=== PATIENT | female | born 1940 | race Caucasian/White ===

== ENCOUNTER 2023-10-05 12:36 | Emergency (ER) | payer OTHER, SELFPAY ==
[2023-10-05 12:59] VITALS: BP 165/103
[2023-10-05 13:21] LABS: % Basophils 0.6 % (0-2); % Eosinophils 1.6 % (0-6); % Immature Granulocytes 0.2 % (0-0.5); % Lymphocytes 16.4 % (20.5-51.1); % Monocytes 9.4 % (1.7-9.3); % Neutrophils 71.8 % (42.2-75.2); Absolute Basophils 0.1 10^3/uL (0-0.2); Absolute Eosinophils 0.1 10^3/uL (0-0.7); Absolute Lymphocytes 1.4 10^3/uL (1.2-3.4); Absolute Monocytes 0.8 10^3/uL (0.1-0.6); Absolute Neutrophils 6.1 10^3/uL (1.4-6.5); Hematocrit 41.5 % (37.0-47.0); Hemoglobin 14.2 g/dL (12.0-16.0); Mean Corp Hgb Conc. 34.2 g/dL (33.0-37.0); Mean Corpuscular Hgb 30.5 pg (27.0-31.0); Mean Corpuscular Volume 89.1 fL (81.0-99.0); Mean Platelet Volume 9.2 fL (7.4-10.4); Nucleated Red Blood Cells % 0 %; Platelet Count 513 10^3/uL (130-400); Red Blood Cell Count 4.66 10^6/uL (4.20-5.40); Red Cell Dist. Width 14.6 % (11.5-14.5); White Blood Cell Count 8.5 10^3/uL (4.8-10.8)
[2023-10-05 13:45] LABS: NT-proBNP 366 pg/ml
[2023-10-05 14:51] LABS: Blood Urea Nitrogen 15 mg/dl (7-17); Calcium 9.6 mg/dl (8.4-10.2); Carbon Dioxide 23 mmol/L (22-30); Chloride 106 mmol/L (98-107); Glucose 91 mg/dl (70-99); Sodium 134 mmol/L (135-145); eGFR > 60.00
[2023-10-05 14:58] VITALS: BMI 22.5
[2023-10-05 15:05] VITALS: BP 166/86
--- NOTE | 2023-10-05 15:38 | ED.GENMED ---
History of Present Illness
General
Chief Complaint: Skin Problem
Time Seen by Provider: 10/05/23 14:40
Travel History
Have you had any contact with someone who has COVID-19?: No
Do you have any symptoms of coronavirus? Fever > 100 degrees, chills, cough, shortness of breath, sore throat, loss of taste or smell, muscle aches, or headache?: No
History of Present Illness
History of Present Illness:
83-year-old female presents to the emergency department for evaluation of right foot swelling and a small wound to the dorsum of the foot. She is concerned she could have a blood clot. 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
currently on Eliquis. Has a previous history of superficial wounds to the right lower extremity requiring wound care and following antibiotic therapy
Past History
Past History
ED Past Medical History: HTN
ED Past Surgical History: None
Social History
Tobacco: Non-smoker
Alcohol: Occasional
Personal:
Review of Systems
Review of Systems
Allergies reviewed?: Yes
All Other Systems: ROS reviewed and negative except as documented in HPI and ROS
Phy Exam
Physical Exam
Physical Exam:
GEN: Well appearing, NAD, WDWN
HEENT: Oral mucosa moist, no scleral icterus
Cardiac: Regular rate
Lung: No respiratory distress, no tachypnea
MSK: No gross deformity or injuries. Right lower extremity is edematous with prominent varicosities to the upper and lower leg. There is moderate swelling and erythema to the dorsum of the right foot associated with a superficial ulcerated wound
Skin: Good color, no pallor or jaundice, no rashes
Neuro: AO x3, moves all extremities freely
Psych: Calm, cooperative
Course
Orders/Labs/Results
Orders:
Orders
10/05/23 13:10
BNP [NT-proBNP] Urgent
Basic Metabolic Panel Urgent
Complete Blood Count/With Diff Urgent
10/05/23 15:37
Venous Doppler Lwr Ext Rt [US Periph Venous LOWER Ext RT] Urgent
Comment:
Reason For Exam: RLE swelling/pain
Abnormal Lab Results
10/05/23
13:10
RDW 14.6 H %
(11.5-14.5)
Plt Count 513 H 10^3/uL
(130-400)
Absolute Monos (auto) 0.8 H 10^3/uL
(0.1-0.6)
Lymphocytes % 16.4 L %
(20.5-51.1)
Monocytes % 9.4 H %
(1.7-9.3)
Sodium 134 L mmol/L
(135-145)
10/05/23 13:10
10/05/23 13:10
Vital Signs
Initial and Last Documented VS:
Initial Vital Signs
Temp Pulse Resp BP Pulse Ox
98.2 F 73 18 165/103 98
10/05/23 12:59 10/05/23 12:59 10/05/23 12:59 10/05/23 12:59 10/05/23 12:59
Last Documented Vital Signs
Temp Pulse Resp BP Pulse Ox
98.2 F 67 16 151/80 97
10/05/23 12:59 10/05/23 18:10 10/05/23 18:10 10/05/23 18:10 10/05/23 18:10
MDM/Problems Addressed
MDM/Problems Addressed:
Superficial wound likely provoking cellulitis, no evidence for new DVT requiring change to anticoagulation. Will start her on oral and topical antibiotics and recommend close primary care follow-up
*Critical Care Note
Total Time (30-74mins, 75-104mins- exclusive of procedures): Not Applicable
ED Attending Note
-
Portions of this chart may have been created with voice recognition software.� Occasional wrong word or��sound alike� substitutions may have occurred due to the inherent limitations of voice recognition software.
Discharge Plan
Departure
Patient Disposition: Home (Routine Discharge)
Date of Disposition: 10/05/23
Time of Disposition: 17:54
Patient with high blood pressure during this ER visit?: No
Discharge Problem:
Cellulitis of foot, right
Instructions: Cellulitis (Skin Infection), Adult ED
Prescriptions:
New
cephalexin 500 mg capsule
500 mg PO TID 7 Days Qty: 21 0RF
mupirocin 2 % ointment
1 applic topical BID 7 Days Qty: 15 0RF
No Action
lisinopril 20 mg Tablet
20 mg PO BID
cyanocobalamin (vitamin B-12) 500 mcg Tablet
500 mcg PO DAILY
cholecalciferol (vitamin D3) 50 mcg (2,000 unit) Tablet
50 mcg PO DAILY
omega 8-leu-nfb-fish oil [Fish Oil] 1,000 mg (120 mg-180 mg) Capsule
1 cap PO DAILY
Eliquis 5 mg Tablet
5 mg PO BID
Referrals:
Adrien Gamble MD [Family Provider] -
Activity Restrictions/Additional Instructions:
Elevate the leg often
Cleanse the wound with soap and water
Interventions
Interventions:
*Risk Screen - Suicide Last Done: 10/05/23 12:59
*General Assessment Last Done: 10/05/23 12:59
*Neglect/Abuse Screening Last Done: 10/05/23 12:59
ED- Fall Risk Assessment Last Done: 10/05/23 14:58
*ED COVID-19 Vaccine History Last Done: 10/05/23 12:59
*Nursing Disposition Last Done: 10/05/23 18:10
ED-Skin Assessment Last Done: 10/05/23 14:58
Discharge Date and Time
Discharge Date/Time: 10/05/23 18:15
Print Language: SLOVENIAN
[2023-10-05 18:10] VITALS: BP 151/80
--- NOTE | 2023-10-05 18:20 | EDRN ---
Reviewed discharge instructions with patient. Verbalized understanding.
== END 2023-10-05 18:15 | disposition home or self-care (01) ==
LOC: EMR 12:36
PROVIDERS: Emergency Medicine; EMERGENCY PHYSICIAN Emergency Medicine; FAMILY PHYSICIAN Family Medicine
DX: L03.115 Cellulitis of right lower limb (principal); I10 Essential (primary) hypertension; Z79.01 Long term (current) use of anticoagulants; Z86.718 Personal history of other venous thrombosis and embolism
CPT/HCPCS: 99283; 80048; 83880; 85025; 93971

== ENCOUNTER 2023-12-18 00:34 | Inpatient (IN) | payer OTHER, SELFPAY ==
[2023-12-17 18:36] VITALS: BP 147/100
--- NOTE | 2023-12-17 21:20 | ED.GENMED ---
History of Present Illness
General
Chief Complaint: Weakness
Source: patient and family (Daughter)
Exam Limitations: none
Time Seen by Provider: 12/17/23 19:38
Nursing documentation reviewed up to this point in time: agreed with
History of Present Illness
History of Present Illness:
83-year-old female with history as above presents for evaluation of generalized weakness and change in her skin on the right leg. Patient was admitted about a year ago for right lower extremity DVT has been on Eliquis; she did follow with wound
care briefly for skin changes on the right leg. Patient reports that over the past week she feels that the lower leg has been somewhat more discolored on the right�she reports the skin has been darker, not erythematous. It is not painful or
swollen. She also reports that she has had increased generalized weakness to the point that last night she could not even stand up off the toilet. Daughter brought her in to be assessed. She denies any headache or neck pain. Denies chest pain or
shortness of breath. No coughing. No abdominal pain. No nausea, vomiting, diarrhea. Denies urinary symptoms. Denies any other complaints.
Past History
Past History
ED Past Medical History: HTN
ED Past Surgical History: None
Social History
Tobacco: Non-smoker
Alcohol: Occasional
Personal:
Review of Systems
Review of Systems
All Other Systems: ROS reviewed and negative except as documented in HPI and ROS
Constitutional: Reports fatigue; Denies fever
Respiratory: Denies cough or trouble breathing
Cardiac: Denies chest pain or palpitations
ABD/GI: Denies abdominal pain, nausea, vomiting or diarrhea
: Denies flank pain
Musculoskeletal: Denies neck pain or back pain
Skin: Reports other (Darkening of the skin right lower leg)
Neurological: Denies dizzy, headache, weakness or numbness
Phy Exam
Physical Exam
Physical Exam:
General: Awake, alert, oriented x3; no acute distress
Head: Normocephalic, atraumatic
Eyes: Conjunctiva normal, EOMI
Throat: Airway intact, handling secretions
Neck: Trachea midline, supple without meningismus
Lungs: Clear to auscultation bilaterally, no wheezing, rales, rhonchi
Heart: Regular rate and rhythm, no murmurs, gallops, or rubs
Abd: Soft, non distended, nontender
Neuro: Cranial nerves grossly intact, speech fluid
Skin: no rash
Extremities: No edema in extremities, equal pulses in all extremities; patient has repeatedly chronic venous stasis changes in her right lower extremity with dry scaly skin; she does have a very small patch of erythema on the dorsum of the midfoot
on the right but it is not warm or tender to the touch; pulses palpable right lower extremity and present by Doppler for confirmation.
Scores
Heart Failure Risk
Heart Failure Risk Score: Not Applicable
Heart Score for Chest Pain Patients
STEMI patient?: Not applicable
Withdrawal Assessment of Alcohol
Withdrawal Assessment Completed?: Not applicable
Course
Orders/Labs/Results
Orders:
Orders
12/17/23 19:40
Electrocardiogram (*1) Urgent
Reason for Study: Fatigue / Weakness
EKG- Treatment ONCE
Urinalysis Reflex To Culture Urgent
12/17/23 20:04
CR Chest Portable - 1 View Urgent
Comment:
Reason For Exam: weakness
Reason Study Needs to be Portable: Unable to Transport
US Periph Venous LOWER Ext RT Urgent
Comment:
Reason For Exam: RLE skin changes, h/o DVT RLE
12/17/23 21:23
COVID-19 Antigen Urgent
Source: Nasal Swab
Complete Blood Count/With Diff Urgent
Comprehensive Metabolic Panel Urgent
Abnormal Lab Results
12/17/23
21:23
RDW 14.6 H %
(11.5-14.5)
Plt Count 633 H 10^3/uL
(130-400)
Lymphocytes % 18.1 L %
(20.5-51.1)
BUN 18 H mg/dl
(7-17)
Glucose 101 H mg/dl
(70-99)
12/17/23 21:23
12/17/23 21:23
Vital Signs
Initial and Last Documented VS:
Initial Vital Signs
Temp Pulse Resp BP Pulse Ox
36.8 C 93 16 147/100 98
12/17/23 18:36 12/17/23 18:36 12/17/23 18:36 12/17/23 18:36 12/17/23 18:36
Last Documented Vital Signs
Temp Pulse Resp BP Pulse Ox
36.8 C 93 16 147/100 98
12/17/23 18:36 12/17/23 18:36 12/17/23 18:36 12/17/23 18:36 12/17/23 18:36
MDM/Problems Addressed
Differential Diagnosis Includes:
Weakness: Wide differential diagnosis includes infection such as UTI or pneumonia, anemia, electrolyte derangement, dehydration, polypharmacy, deconditioning
Skin changes: Cellulitis a consideration, suspect more likely chronic venous stasis changes although must consider DVT given her history; she has no pain or any symptoms to suggest an acute arterial occlusion although certainly some degree of
peripheral vascular disease could contribute to skin changes
MDM/Problems Addressed:
83-year-old female presents for evaluation of generalized weakness and so has noticed some darkening of the skin on the right leg. Including CBC and CMP. Check viral swabs. Check chest x-ray. Will send urinalysis. Check an EKG. Will send for
right lower extremity ultrasound. Monitor closely reassess after the above.
Labs reviewed: CBC and CMP unremarkable COVID-negative. Chest x-ray no acute disease. Awaiting ultrasound.
Ultrasound shows nonocclusive thrombus in the right femoral vein�given that she is having symptoms similar to prior DVT and is reportedly compliant with Eliquis will start on IV heparin admit for specialist consultation and continued treatment.
Case discussed with hospitalist.
Chronic conditions affecting care:
History of DVT
Acute Exacerbation and/or Progression of Chronic Illness:
Acute hypertensive
Acute Exacerbation and/or Progression of Chronic Illness: HTN
*Radiology
Radiology exam reviewed: radiology read reviewed
*Pulse Oximetry
Patient hypoxic: no
*EKG
Interpreted by ED Provider?: Yes
Heart Rate: 79
Rate: normal
Rhythm: sinus
Sumerco: normal axis
Interval: normal interval
QRS Pattern: right bundle branch block
Ischemia: no ischemia
*Critical Care Note
Total Time (30-74mins, 75-104mins- exclusive of procedures): Not Applicable
Data Reviewed
Review of Other/Old Records Reveals: Labs and Records
Source: patient, records and family
Patient Management
Discussion with other providers: Hospitalist (Discussed with hospitalist)
Escalation/DeEscalation of care consider admission/obs:
Admission indicated
ED Attending Note
-
Portions of this chart may have been created with voice recognition software.� Occasional wrong word or��sound alike� substitutions may have occurred due to the inherent limitations of voice recognition software.
Discharge Plan
Departure
Patient Disposition: Admit
Date of Disposition: 12/17/23
Time of Disposition: 23:58
Admit to doctor: Sunitha
Presentation/result/management discussed w/ accepting MD/DO: Hospitalist
Discharge Problem:
DVT (deep venous thrombosis)
Prescriptions:
No Action
lisinopril 20 mg Tablet
20 mg PO BID
cyanocobalamin (vitamin B-12) 500 mcg Tablet
500 mcg PO DAILY
cholecalciferol (vitamin D3) 50 mcg (2,000 unit) Tablet
50 mcg PO DAILY
omega 9-uea-enj-fish oil [Fish Oil] 1,000 mg (120 mg-180 mg) Capsule
1 cap PO DAILY
Eliquis 5 mg Tablet
5 mg PO BID
cephalexin 500 mg capsule
500 mg PO TID 7 Days Qty: 21 0RF
mupirocin 2 % ointment
1 applic topical BID 7 Days Qty: 15 0RF
Referrals:
Adrien Gamble MD [Family Provider] -
Discharge Date and Time
Print Language: INDONESIAN
[2023-12-17 21:24] VITALS: BP 168/94
[2023-12-17 21:30] VITALS: BP 158/91
[2023-12-17 21:41] LABS: % Basophils 0.4 % (0-2); % Eosinophils 0.9 % (0-6); % Immature Granulocytes 0.4 % (0-0.5); % Lymphocytes 18.1 % (20.5-51.1); % Monocytes 6.5 % (1.7-9.3); % Neutrophils 73.7 % (42.2-75.2); Absolute Eosinophils 0.1 10^3/uL (0-0.7); Absolute Lymphocytes 1.5 10^3/uL (1.2-3.4); Absolute Monocytes 0.6 10^3/uL (0.1-0.6); Absolute Neutrophils 6.2 10^3/uL (1.4-6.5); Hematocrit 40.3 % (37.0-47.0); Hemoglobin 13.9 g/dL (12.0-16.0); Mean Corp Hgb Conc. 34.5 g/dL (33.0-37.0); Mean Corpuscular Hgb 30.2 pg (27.0-31.0); Mean Corpuscular Volume 87.4 fL (81.0-99.0); Nucleated Red Blood Cells % 0 %; Platelet Count 633 10^3/uL (130-400); Red Blood Cell Count 4.61 10^6/uL (4.20-5.40); Red Cell Dist. Width 14.6 % (11.5-14.5); White Blood Cell Count 8.4 10^3/uL (4.8-10.8)
[2023-12-17 21:51] LABS: ALT (SGPT) 10 U/L (0-35); AST (SGOT) 26 U/L (14-36); Albumin 3.8 g/dl (3.5-5.0); Alkaline Phosphatase 104 U/L (38-126); Blood Urea Nitrogen 18 mg/dl (7-17); COVID-19 Antigen Negative (Negative); Calcium 9.9 mg/dl (8.4-10.2); Carbon Dioxide 23 mmol/L (22-30); Chloride 106 mmol/L (98-107); Glucose 101 mg/dl (70-99); Potassium 4.4 mmol/L (3.5-5.1); Sodium 140 mmol/L (135-145); eGFR > 60.00
[2023-12-17 22:00] VITALS: BP 156/96
[2023-12-17 22:30] VITALS: BP 141/87
[2023-12-18] VITALS (12 sets, daily range): BP systolic 116–160; BP diastolic 68–97; PULSE 84–85; O2SAT 97; BMI 22.0
--- NOTE | 2023-12-18 00:13 | HPS.HSE ---
Addendum entered and electronically signed by Jacobo Helton MD 12/18/23 00:54:
NEG�HCT� for acute process.
Pending UA
Original Note:
Family Physician
-
Family Physician: Adrien Gamble
Chief Complaint
-
abn skin changes in Rt leg
History of Present Illness
83F on chronic Eliquis for HX RLE DVT dx in 2021 seen at ER for evaluation of skin change on the right leg
Rt leg skin changes
- noted somewhat more discolored on the right described as darker but not erythematous.
- denied pain and swelling
- associated increased generalized weakness last night thus unable to stand up off the toilet. No localized weakness
- denied fever and chills
- denies CP
- denied SoB and palpitation
- Brief Past HX of wound care f/u for skin changes on the right leg
On chronic Eliquis for HX RLE DVT dx in 2021 and compliance with Eliquis
Medical History
Past Medical History
Past Medical History: Reports HTN
Additional Past Medical History:
HX Rt LUDMILA DVT
Past Surgical History: Reports None
Social History
Tobacco: Non-smoker
Alcohol: Occasional
Personal:
Living: With Family
Family History
Family History: Not pertinent
Allergies / Home Medications
Allergies reflects when Allergies were last updated in [facility].
Home Medications with original date entered in [facility]
Allergy/Medication List:
Allergies
Allergy/AdvReac Type Severity Reaction Status Date / Time
No Known Allergies Allergy Verified 12/17/23 18:38
Home Medications
apixaban 5 mg tablet (Eliquis) 5 mg PO BID 10/05/23
cephalexin 500 mg capsule 500 mg PO TID 7 days #21 caps 10/05/23
cholecalciferol (vitamin D3) 50 mcg (2,000 unit) tablet 50 mcg PO DAILY 10/05/23
cyanocobalamin (vitamin B-12) 500 mcg tablet 500 mcg PO DAILY 10/05/23
lisinopril 20 mg tablet 20 mg PO BID 10/05/23
mupirocin 2 % topical ointment 1 applic topical BID 7 days #15 grams 10/05/23
omega 1-fyn-ycn-fish oil 1,000 mg (120 mg-180 mg) capsule (Fish Oil) 1 cap PO DAILY 10/05/23
Review of Systems
-
Constitutional: Reports No Symptoms
EENT: Reports No Symptoms
Respiratory: Reports No Symptoms
Cardiac: Reports No Symptoms
Abdomen/GI: Reports No Symptoms
: Reports No Symptoms
Musculoskeletal: Reports No Symptoms
Skin: Reports See HPI
Neurological: Reports No Symptoms
Endocrine: Reports No Symptoms
Hematologic/Lymphatic: Reports No Symptoms
Psych: Reports No Symptoms
Physical Exam
Vital Signs
Vital Signs
Temp Pulse Resp BP Pulse Ox
98.2 F 93 16 147/100 98
12/17/23 18:36 12/17/23 18:36 12/17/23 18:36 12/17/23 18:36 12/17/23 18:36
Physical Exam
General: Well Developed, Well Nourished and No Apparent Distress
HEENT: NormoCephalic, Moist mucous membranes and Atraumatic
Respiratory: Clear
Cardiac: S1/S2 and Regular Rhythm; No Murmur or Rub
GI: Soft, Non Tender, Non Distended and Normal Bowel Sounds; No Organomegaly
Rectal: Deferred by Provider
Musculoskeletal: No Clubbing, No Cyanosis, No Edema and Other (unkempt thick, hypertrophic toenails)
Skin: Other (No edema in extremities, equal pulses in all extremities; patient has repeatedly chronic venous stasis changes in her right lower extremity with dry scaly skin- very small patch of erythema on the dorsum of the midfoot on the right but
it is not warm or tender to the touch); No Rash
Neuro: AO x 3 and Nonfocal/grossly intact
Laboratory Results
-
12/17/23 21:23
12/17/23 21:23
Laboratory Results
Total Bilirubin 1.0 mg/dl (0.2-1.3) 12/17/23 21:23
AST 26 U/L (14-36) 12/17/23 21:23
ALT 10 U/L (0-35) 12/17/23 21:23
Alkaline Phosphatase 104 U/L (38-126) 12/17/23 21:23
Data Reviewed
-
Ultrasound: Report Reviewed by me
Lab Data: Labs Reviewed by me
Old Records: Reviewed
Impression/Plan
-
Reviewed VS: Unremarkable
Data
Plt 633 - baseline 500s since 2021
Unremarkable CMP
NEG Covid
EKG report:
NORMAL SINUS RHYTHM
POSSIBLE LEFT ATRIAL ENLARGEMENT
RIGHT BUNDLE BRANCH BLOCK
ABNORMAL ECG
WHEN COMPARED WITH ECG OF 16-FEB-2008 14:32,
RIGHT BUNDLE BRANCH BLOCK IS NOW PRESENT
12/17/23 R Ludmila US
Mild nonocclusive thrombus in the femoral vein
12/17/23 CXR: No acute cardiopulmonary process.
NO PRIOR hospitalist admission:
ASSESSMENT & PLAN
Pending Rx reconciliation
Break thru R Ludmila DVT depside reported compliance with Eliquis
- Agree with Heparin gtt
- Held Eliquis
- Hematology consult
Thrombocytosis: Essential primary thrombocytosis ?
- noted since 2021
- no prior heme evaluation
- await Heme evaluation in AM
Acute ambulatory dysfunction
- associated weakness
- HCT to complete w/u for weakness and gait dysfunction
- PT/OT
Unkempt thick, hypertrophic long curvy toe nails
- Security Delivery Specialist consult
Essential HTN
- on Lisinopril
DVT Px: Heparin gtt
Code: Full
IP TLM
[2023-12-18] MEDS: HEPARIN 5200 UNITS IV (00:47)
[2023-12-18] MEDS: HEPARIN 25000 UNITS/250 ML IV ×2 (00:48→20:59)
[2023-12-18 01:48] LABS: APTT 21.4 Sec (23.4-35.0); INR 1.16; PT 14.6 Sec (11.4-14.6)
[2023-12-18] MEDS: NSS 1000 IV ×2 (03:06→18:33)
[2023-12-18 08:03] LABS: INR 1.35; PT 16.5 Sec (11.4-14.6)
[2023-12-18 08:05] LABS: Hematocrit 34.6 % (37.0-47.0); Hemoglobin 11.7 g/dL (12.0-16.0); Mean Corp Hgb Conc. 33.8 g/dL (33.0-37.0); Mean Corpuscular Volume 88.7 fL (81.0-99.0); Mean Platelet Volume 9.3 fL (7.4-10.4); Platelet Count 613 10^3/uL (130-400); Red Cell Dist. Width 14.6 % (11.5-14.5); White Blood Cell Count 7.7 10^3/uL (4.8-10.8)
[2023-12-18] MEDS: ZESTRIL 20 MG PO ×2 (08:07→20:37)
[2023-12-18 08:21] LABS: APTT 178.3 Sec (23.4-35.0)
[2023-12-18 08:27] LABS: Blood Urea Nitrogen 15 mg/dl (7-17); Calcium 8.8 mg/dl (8.4-10.2); Carbon Dioxide 24 mmol/L (22-30); Chloride 107 mmol/L (98-107); Estimated Creatinine Clearance 67 ml/min; Glucose 77 mg/dl (70-99); Potassium 4.2 mmol/L (3.5-5.1); Sodium 137 mmol/L (135-145); eGFR > 60.00
--- NOTE | 2023-12-18 10:29 | W.PN.HOSP.TC ---
Today's Communication/Plan
-
see A/P
Assessment / Plan
Assessment / Plan
HPI: 83 yo F with PMH RLE DVT diagnosed 2021 on chronic Eliquis and compliant p/w skin changes on the right leg.
She denied pain or swelling.
She also c/o generalized weakness and was unable to get up from the toilet.
A/P:
# acute RLE DVT depside reported compliance with Eliquis
RLE US: Nonocclusive right lower extremity DVT slightly progressed from prior
Consider Eliquis failure
Cont Heparin gtt
Hold [employer] Eliquis
Hematology consult
# Thrombocytosis, ? Essential thrombocytosis
no prior heme evaluation
Hematology consult as above
# Acute ambulatory dysfunction with associated weakness
CT head showed no acute intracranial abnormality.
PT/OT
# Unkempt thick, hypertrophic long curvy toe nails
[employer] was consulted by admission physician
# Essential HTN
Cont [facility] Lisinopril
DVT Px: Heparin gtt
Code: Full
Anticipated Discharge: > 48 hours
Subjective/Interval History
-
Date of Service: December 18, 2023
Objective Data
-
Labs:
Laboratory Results
12/18/23 12/18/23 12/18/23
00:41 06:38 15:30
WBC 7.7
Hgb 11.7 L
Hct 34.6 L
Plt Count 613 H
PT 14.6 16.5 H
INR 1.16 1.35
APTT 21.4 L 178.3 H* Pending
Sodium 137
Potassium 4.2
Chloride 107
Carbon Dioxide 24
BUN 15
Creatinine 0.6
Glucose 77
Calcium 8.8
Vital Signs:
Vital Signs
Temp Pulse Resp BP Pulse Ox
37.0 C 83 12 141/91 95
12/18/23 07:02 12/18/23 08:07 12/18/23 07:02 12/18/23 08:07 12/18/23 07:02
I&O
12/17/23 12/18/23 12/19/23
06:59 06:59 06:59
Intake Total 0 / 0
Output Total 180 / 180
Balance -180 / -180
Review of Systems
-
All other systems: Reviewed and negative
Physical Exam
-
General: Well Developed, No Apparent Distress, Comfortable and Conversant; Negative Respiratory Distress
HEENT: Normocephalic, Atraumatic, Nose Appears Normal and Ears Appear Normal; Negative Oxygen
Respiratory: Clear to Auscultation and Non Labored Respirations; Negative Accessory Resp Muscle Use
Cardiac: Regular Rhythm and S1/S2
GI: Soft, Nontender, Nondistended and Normal Bowel Sounds
Skin: Warm and Dry
Neuro: Awake and Alert
Psych: Calm and Intact Judgement/Insight
Data Reviewed
-
Ultrasound: Report Reviewed by me
Labs: Labs Reviewed by me
--- NOTE | 2023-12-18 11:44 | CON.ONC ---
Addendum entered and electronically signed by Ji Sparks MD 12/19/23 13:47:
I neglected to mention her thrombocytosis which is occurred recently. 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 Molecular studies would be necessary, but will have to be performed as an outpatient.
Original Note:
Impression
Impression
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
Plan
Plan
Given the extensive nature of her varicosities, and a recurrent clot, I have some concern for venous obstruction or other pelvic pathology. Will proceed with CT scan.
Assuming no reversible causes seen on CT scan we must consider her an Eliquis failure. However, the right lower extremity is so pathologic in terms of its venous anatomy, I am not certain that switching her to warfarin will actually be a better
choice. However, it appears that we have a little choice other than to do that. I will also check a phospholipid antibody panel on her.
Patient History
History of Present Illness
Consult from Dr. Chapman regarding deep vein thrombosis
This 83-year-old woman was admitted with a deep vein thrombosis. Her history dates back about 2 years, when she was diagnosed with a deep vein thrombosis of the right femoral vein. She was treated with Eliquis 5 mg twice daily. Sometime
thereafter, she developed extensive varicosities, as well as some nonhealing areas of the skin in that extremity requiring frequent visits to the wound care center. The skin problems eventually improved. A repeat venous Doppler in September of this year
showed improvement in the clot, with a suggestion of some chronic clot in the mid femoral vein. However, she noted discoloration of the right lower extremity, and a Doppler done yesterday showed progression of the previously described chronic clot,
with clot now involving most of the femoral vein. She is being treated with intravenous heparin. She has had no trauma to the leg.
Past-Medical/Surgical History
She has otherwise been in good health.
Social history: She does not smoke.
Family history is noncontributory.
Patient Medication
�Medication �Instructions �Recorded �Confirmed �Last Taken �Type
apixaban 5 mg tablet (Eliquis) 5 mg PO BID 10/05/23 10/05/23 10/05/23 History
cephalexin 500 mg capsule 500 mg PO TID 7 days #21 caps 10/05/23 Unknown Rx
cholecalciferol (vitamin D3) 50 50 mcg PO DAILY 10/05/23 10/05/23 10/05/23 History
mcg (2,000 unit) tablet
cyanocobalamin (vitamin B-12) 500 500 mcg PO DAILY 10/05/23 10/05/23 10/05/23 History
mcg tablet
lisinopril 20 mg tablet 20 mg PO BID 10/05/23 10/05/23 10/05/23 History
mupirocin 2 % topical ointment 1 applic topical BID 7 days #15 10/05/23 Unknown Rx
grams
omega 5-fft-tbl-fish oil 1,000 mg 1 cap PO DAILY 10/05/23 10/05/23 10/05/23 History
(120 mg-180 mg) capsule (Fish Oil)
Active Medications
Generic Name Dose Route Start Last Admin
Trade Name Freq PRN Reason Stop Dose Admin
Acetaminophen 650 mg 12/18/23 02:16
Acetaminophen 325 Mg Tablet PO 01/15/24 02:15
Q4HPRN PRN
mild pain/WELLER/temp> 100.4F
Bisacodyl 10 mg 12/18/23 02:16
Bisacodyl 10 Mg Rectal Suppository RECTAL 01/15/24 02:15
[id number] PRN
constipation
Heparin Sodium 5,200 units 12/18/23 00:09
Heparin 80 Units/Kg Rebolus-Do Not Discard IV 01/15/24 00:08
PRN PRN
PTT < OR = 64 seconds
Heparin Sodium 2,600 units 12/18/23 00:10
Heparin 40 Units/Kg Rebolus-Do Not Discard IV 01/15/24 00:09
PRN PRN
PTT = 64.1 to 72.9 seconds
Heparin Sodium 25,000 units in 250 mls @ 0 mls/hr 12/17/23 23:45 12/18/23 00:48
Heparin 18189 Units/250 Ml IV 250 mls
PER PROTOCOL LILLIAN Administration
Protocol
Per Protocol
Sodium Chloride 1,000 mls @ 60 mls/hr 12/18/23 02:16 12/18/23 03:06
Nss IV 1,000 mls
.[id number] LILLIAN Administration
Lisinopril 20 mg 12/18/23 08:00 12/18/23 08:07
Lisinopril 20 Mg Tablet PO 01/15/24 07:59 20 mg
BID LILLIAN Administration
Polyethylene Glycol 17 grams 12/18/23 02:16
Polyethylene Glycol Powder 17 Grams Packet PO 01/15/24 02:15
DAILYPRN PRN
constipation
Senna/Docusate Sodium 1 tablet 12/18/23 02:16
Docusate W/Senna (Usha-Colace) Tablet PO 01/15/24 02:15
BIDPRN PRN
constipation
Sodium Chloride 0 flush 12/18/23 01:00
Sodium Chloride 0.9% (Flush) Syringe IV 01/15/24 00:59
PER PROTOCOL LILLIAN
Review of Systems
-
All Other Systems: Reviewed and Negative
Physical Exam
-
Physical examination shows the patient to be in no acute distress.
HEENT exam is unremarkable.
There are no palpable nodes.
Chest is clear.
The heart is regular with no murmur or gallop.
The abdomen is soft and nontender with no organomegaly or masses.
Extremities reveal extensive varicosities throughout most of the right lower extremity.
Neurologic is grossly intact.
Labs
Lab Results
WBC 7.7 10^3/uL (4.8-10.8) 12/18/23 06:38
RBC 3.90 10^6/uL (4.20-5.40) L 12/18/23 06:38
Hgb 11.7 g/dL (12.0-16.0) L 12/18/23 06:38
Hct 34.6 % (37.0-47.0) L 12/18/23 06:38
MCV 88.7 fL (81.0-99.0) 12/18/23 06:38
MCH 30.0 pg (27.0-31.0) 12/18/23 06:38
MCHC 33.8 g/dL (33.0-37.0) 12/18/23 06:38
RDW 14.6 % (11.5-14.5) H 12/18/23 06:38
Plt Count 613 10^3/uL (130-400) H 12/18/23 06:38
MPV 9.3 fL (7.4-10.4) 12/18/23 06:38
Abs Immat Gran (auto) 0.0 10^3/uL (0-0.05) 12/17/23 21:23
Absolute Neuts (auto) 6.2 10^3/uL (1.4-6.5) 12/17/23 21:23
Absolute Lymphs (auto) 1.5 10^3/uL (1.2-3.4) 12/17/23 21:23
Absolute Monos (auto) 0.6 10^3/uL (0.1-0.6) 12/17/23 21:23
Absolute Eos (auto) 0.1 10^3/uL (0-0.7) 12/17/23 21:23
Absolute Basos (auto) 0.0 10^3/uL (0-0.2) 12/17/23 21:23
Immature Gran % 0.4 % (0-0.5) 12/17/23 21:
Neutrophils % 73.7 % (42.2-75.2) 12/17/23:
Lymphocytes % 18.1 % (20.5-51.1) L 12/17/23 21:
Monocytes % 6.5 % (1.7-9.3) 12/17/23 21:
Eosinophils % 0.9 % (0-6) 12/17/23:
Basophils % 0.4 % (0-2) 12/17/23:
Creatinine 0.6 mg/dL (0.6-1.0) 12/18/23 06:38
Vital Signs
Vital Signs
Temp Pulse Resp BP Pulse Ox
98.6 F 83 12 141/91 95
12/18/23 07:02 12/18/23 08:07 12/18/23 07:02 12/18/23 08:07 12/18/23 07:02
--- NOTE | 2023-12-18 11:54 | CM ---
CM met with Virginia this am to assess potential needs for discharge.
[place]ia lives alone at [facility]; home is one level with no entry steps. She has a cane and a RW, drives. Has been independent in ambulation and adl's.
Currently Virginia is weaker and may benefit from SNF admission. She is considering this option and would like to review the list of options for SNF.
CM to continue to follow to arrange services/placement at discharge.
PCP: Adrien Richard
Pharmacy: [facility] in [place]
--- NOTE | 2023-12-18 13:39 | PTCARENOTE ---
Patient had two bright red bloody bowel movements today. GI MD aware. On clear liquid diet today. Denies N/V or abdominal pain.
[2023-12-18 16:52] LABS: APTT 78.3 Sec (23.4-35.0)
--- NOTE | 2023-12-18 17:02 | PTCARENOTE ---
PTT in therapeutic range. No changes to heparin gtt rate. Remains at 1000 units/hour. Next PTT scheduled for 2300.
--- NOTE | 2023-12-18 22:26 | W.PN.POD ---
Today's Communication
- Today's Communication
podiatry consult by admitting physician
unkempt toenails
Assessment / Plan
- -
Mycotic Hypertrophic toenails both feet
severe thickness and discoloration
Debrided and grinded all nails to reduce thickness,
deformity and pain
patient tolerated well
no complications
suggest patient followup with personal paint crew supervisor in 3 months
Subjective/Objective
- Subjective
patient admitted due to weakness and changes in color
of lower right leg
past history of DVT and on eliquis
patient has not trimmed toenails for months
big toenails possibly for a year
patient unable to trim own nails
too hard and thick
patient relates mild pain only but uncomfortable walking and wearing shoes
- Objective
Temp Pulse Resp BP Pulse Ox
98.7 F 80 16 146/85 95
12/18/23 19:38 12/18/23 20:37 12/18/23 19:38 12/18/23 20:37 12/18/23 19:38
12/18/23 06:38
12/18/23 06:38
Vital Signs and Lab results were reviewed.
Hallux nails severely thickened > 1/4 inches
and elongated with delma horn deformity
discolored with yellow surface and subungal debris
lesser nails 2-5 moderate thickness both feet
discolored with yellow subungal debris
no lesions
pulses no PT, DP +1/4
[2023-12-18] MEDS: HEPARIN 2600 UNITS IV (23:35)
[2023-12-19 03:04] VITALS: BP 154/78
[2023-12-19 06:46] LABS: Hematocrit 35.4 % (37.0-47.0); Hemoglobin 11.9 g/dL (12.0-16.0); Mean Corp Hgb Conc. 33.6 g/dL (33.0-37.0); Mean Corpuscular Hgb 30.7 pg (27.0-31.0); Mean Corpuscular Volume 91.2 fL (81.0-99.0); Mean Platelet Volume 8.9 fL (7.4-10.4); Platelet Count 578 10^3/uL (130-400); Red Blood Cell Count 3.88 10^6/uL (4.20-5.40); Red Cell Dist. Width 14.5 % (11.5-14.5); White Blood Cell Count 7.4 10^3/uL (4.8-10.8)
[2023-12-19 07:04] LABS: APTT 118.3 Sec (23.4-35.0)
[2023-12-19 07:16] LABS: Blood Urea Nitrogen 11 mg/dl (7-17); Calcium 9.2 mg/dl (8.4-10.2); Carbon Dioxide 26 mmol/L (22-30); Chloride 106 mmol/L (98-107); Estimated Creatinine Clearance 67 ml/min; Glucose 93 mg/dl (70-99); Magnesium 1.7 mg/dl (1.6-2.3); Potassium 4.3 mmol/L (3.5-5.1); Sodium 138 mmol/L (135-145); eGFR > 60.00
[2023-12-19 07:59] VITALS: BP 146/84
[2023-12-19] MEDS: ZESTRIL 20 MG PO ×2 (08:17→19:49)
--- NOTE | 2023-12-19 09:43 | W.PN.HOSP.TC ---
Today's Communication/Plan
-
see A/P
Assessment / Plan
Assessment / Plan
HPI: 83 yo F with PMH RLE DVT diagnosed 2021 on chronic Eliquis and compliant p/w skin changes on the right leg.
She denied pain or swelling.
She also c/o generalized weakness and was unable to get up from the toilet.
CT AP:
1. The inferior vena cava and bilateral iliac veins are patent. No evidence for venous thrombosis or extrinsic compression.
2. Cholelithiasis.
3. Colonic diverticulosis.
4. 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
5. Stable small bilateral adnexal cystic structures.
6. Chronic appearing moderate to severe compression fracture of L1 with retropulsion.
A/P:
# acute recurrent RLE DVT depside reported compliance with Eliquis
RLE US: Nonocclusive right lower extremity DVT slightly progressed from prior
Consider Eliquis failure , Holding CHANNELING MACHINE RUNNER Eliquis
Cont Heparin gtt
CT AP checked per heme to eval pathology of venous anatomy, CT noted patent IVC and BL iliac veins
Check Phospholipid antibody panel per heme
Hematology on board
# Thrombocytosis, ? 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
Hematology consult as above
Will defer ASA to heme
# Acute ambulatory dysfunction with associated weakness
CT head showed no acute intracranial abnormality.
PT/OT recc SNF
# Unkempt thick, hypertrophic long curvy toe nails/ Mycotic Hypertrophic toenails both feet
Claims Service Adjustor debrided and grinded all nails to reduce thickness, deformity and pain
suggest patient followup with personal rigging loft repairer in 3 months
# Essential HTN
Cont CHANNELING MACHINE RUNNER Lisinopril
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
Recc outpt MRI with PCP and consider follow up with GI. Informed pt about this
DVT Px: Heparin gtt
Code: Full
Dispo: PT recc SNF
Anticipated Discharge: 24 - 48 hours
Subjective/Interval History
-
Date of Service: December 19, 2023
Objective Data
-
Labs:
Laboratory Results
12/18/23 12/19/23 12/19/23
23:07 06:31 14:35
WBC 7.4
Hgb 11.9 L
Hct 35.4 L
Plt Count 578 H
APTT 65.0 H 118.3 H Pending
Sodium 138
Potassium 4.3
Chloride 106
Carbon Dioxide 26
BUN 11
Creatinine 0.6
Glucose 93
Calcium 9.2
Vital Signs:
Vital Signs
Temp Pulse Resp BP Pulse Ox
37.0 C 76 18 146/84 96
12/19/23 07:59 12/19/23 07:59 12/19/23 07:59 12/19/23 07:59 12/19/23 07:59
I&O
12/18/23 12/19/23 12/20/23
06:59 06:59 06:59
Intake Total 0 / 0 840 / 840
Output Total 180 / 180
Balance -180 / -180 840 / 840
Review of Systems
-
All other systems: Reviewed and negative
Physical Exam
-
General: Well Developed, No Apparent Distress, Comfortable and Conversant; Negative Respiratory Distress
HEENT: Normocephalic, Atraumatic, Nose Appears Normal and Ears Appear Normal; Negative Oxygen
Respiratory: Clear to Auscultation and Non Labored Respirations; Negative Accessory Resp Muscle Use
Cardiac: Regular Rhythm and S1/S2
GI: Soft, Nontender, Nondistended and Normal Bowel Sounds
Skin: Warm and Dry
Neuro: Awake and Alert
Psych: Calm and Intact Judgement/Insight
Data Reviewed
-
CT Scan: Report Reviewed by me
Ultrasound: Report Reviewed by me
Labs: Labs Reviewed by me
[2023-12-19 11:26] VITALS: BP 138/72
--- NOTE | 2023-12-19 12:48 | CM ---
Addendum entered by Victoria Moore 12/19/23 15:42:
JOSIE followed up with [place] to determine her preferences for SNF. She feels that [facility] would be the best since it is close to home, and friends/neighbors could visit her there.
Original Note:
CM met with [place] and provided her with the Medicare Compare SNF list in the area. Virginia talked about her home and the community in which she lives. There are a lot of activities if she wants to participate, and her neighbors are supportive of
everyone in the community.
Virginia is concerned that she is not feeling as perky as she usually does, and may opt to go to SNF.
CM will return later today to discuss preferences for SNF facilities; referrals will be sent via [facility].
--- NOTE | 2023-12-19 14:00 | W.PN.ONC ---
Today's Communication / Plan
-
See updated plan.
Impression
Impression
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
Plan
Plan
CT scan does not reveal any possible structural etiology for the venous pathology. As mentioned, it is difficult to argue with the venous Dopplers which seem to show that she has failed Eliquis. My sense is that she will not do well on warfarin,
and that leaving her on Eliquis might be a viable option. Nevertheless, I have little choice but to recommend transitioning her to warfarin. I would be reluctant to add aspirin to that in light of the possible essential thrombocytosis, as her
bleeding risk would go up quite a bit at her age.
We will see her in the office in a month or 2 for molecular studies regarding essential thrombocytosis.
Subjective/Objective
Subjective/Objective
She is feeling about the same. She reports no new symptoms. Examination is unchanged.
Vital Signs:
Vital Signs
Temp Pulse Resp BP Pulse Ox
98.8 F 73 18 138/72 96
12/19/23 11:26 12/19/23 11:26 12/19/23 11:26 12/19/23 11:26 12/19/23 11:26
Lab Results:
Laboratory Data
WBC 7.4 10^3/uL (4.8-10.8) 12/19/23 06:31
Hgb 11.9 g/dL (12.0-16.0) L 12/19/23 06:31
Plt Count 578 10^3/uL (130-400) H 12/19/23 06:31
PT 16.5 Sec (11.4-14.6) H 12/18/23 06:38
INR 1.35 12/18/23 06:38
APTT 118.3 Sec (23.4-35.0) H 12/19/23 06:31
eGFR > 60.00 12/19/23 06:31
Orders
Orders
Orders From Last 24 Hours
12/19/23 06:31
Lupus Anticoagulant Panel Refl [S] IN AM
Phospholipid Antibody Panel IN AM
[2023-12-19 14:35] LABS: APTT 41.9 Sec (23.4-35.0)
[2023-12-19] MEDS: HEPARIN 5200 UNITS IV (14:48)
[2023-12-19 15:59] VITALS: BP 165/98
--- NOTE | 2023-12-19 16:11 | CM ---
CM contacted Sunita Erlin who had spoken with RN, requesting I contact her to discuss discharge plans. Sunita is a close family friend who looks after Virginia; [place] was agreeable to me speaking with Sunita.
I had provided a list of SNF with star ratings from Medicare; she thinks that [facility] would be best since it is close to home and friends/neighbors may visit.
I advised Sunita that Virginia had chosen [facility] and Sunita was agreeable to this.
CM will send referral to [facility] via [facility]. Discharge is anticipated in 24-48 hours.
Plan: SNF placement with first choice of [facility].
PCP: Adrien Richard
Pharmacy: [facility] in [place]
[2023-12-19 19:49] VITALS: BP 140/96
[2023-12-19 21:58] LABS: APTT 155.3 Sec (23.4-35.0)
[2023-12-19 23:33] VITALS: BP 152/87
[2023-12-20] MEDS: HEPARIN 25000 UNITS/250 ML IV ×2 (00:36→23:31)
[2023-12-20 04:25] VITALS: BP 160/92
--- NOTE | 2023-12-20 06:42 | W.PN.ONC2 ---
Today's Communication / Plan
-
IV Heparin > warfarin as Eliquis failure.
MRI ATTN: Pancreas based on pancreatic lesion. Relatively low pre-test probability for malignancy but this could be the reason for progressive DVT despite Eliquis (if hypercoagulability of malignancy).
Impression
Impression
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
Plan
Plan
CT scan does not reveal any possible structural etiology for the venous pathology. As mentioned, it is difficult to argue with the venous Dopplers which seem to show that she has failed Eliquis. My sense is that she will not do well on warfarin,
and that leaving her on Eliquis might be a viable option. Nevertheless, I have little choice but to recommend transitioning her to warfarin now. I would be reluctant to add aspirin to that in light of the possible essential thrombocytosis, as her
bleeding risk would go up quite a bit at her age.
We will see her in the office in a month or 2 for molecular studies regarding essential thrombocytosis.
Regarding the pancreas, a small 1.4 cm cystic focus in the head of the pancreas which appears to communicate with the main pancreatic duct was seen. Because of this unexpected Progression of DVT, I suspect an MRI to better evaluate this lesion
would be reasonable if she is agreeable as malignancy can lead to hypercoagulability. Still somewhat low pre-test probability. Essential Thrombocytosis if confirmed can also lead to hypercoagulability. Discussed with patient. She is agreeable to
MRI.
Subjective/Objective
Chief Complaint
ACS Heme Onc
Subjective
No complaints. Right leg about the same on IV heparin.
Vital Signs:
Vital Signs
Temp Pulse Resp BP Pulse Ox
98.6 F 68 14 160/92 95
12/20/23 04:25 12/20/23 04:25 12/20/23 04:25 12/20/23 04:25 12/20/23 04:25
Lab Results:
Laboratory Data
WBC 7.4 10^3/uL (4.8-10.8) 12/19/23 06:31
Hgb 11.9 g/dL (12.0-16.0) L 12/19/23 06:31
Plt Count 578 10^3/uL (130-400) H 12/19/23 06:31
PT 16.5 Sec (11.4-14.6) H 12/18/23 06:38
INR 1.35 12/18/23 06:38
APTT 155.3 Sec (23.4-35.0) H* 12/19/23 21:25
eGFR > 60.00 12/19/23 06:31
Exams: CT Abd/pelvis W Iv Cont
PROCEDURES: CT Abd/pelvis W Iv Cont
CLINICAL INDICATION: Worsening right lower extremity edema, concern for venous obstruction.
TECHNIQUE: A CT examination of the abdomen and pelvis was performed following the administration of nonionic intravenous contrast. Oral contrast was not administered. Coronal and sagittal reformatted images were obtained. Automatic exposure control
radiation dose reduction technology was utilized.
COMPARISON: CT abdomen/pelvis 11/24/2014.
FINDINGS:
CHEST: Minor linear scarring in the left lower lobe.
ABDOMEN:
Small calcified gallstone and sludge in the gallbladder lumen. The liver, gallbladder, bile ducts, spleen, and bilateral adrenal glands are unremarkable. 1.4 cm cystic focus in the head of the pancreas (series 202, image 19), which appears to
communicate with the main pancreatic duct. 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 Small right renal cysts. No hydronephrosis.
The abdominal aorta is normal in caliber. Moderate aortobiiliac calcified atherosclerosis. The inferior vena cava and bilateral iliac veins are patent.
No abdominal or retroperitoneal lymphadenopathy.
Colonic diverticulosis, without evidence for acute diverticulitis. No bowel wall thickening, obstruction, or inflammation. No extraluminal free air, fluid collection, or ascites.
PELVIS: Small bilateral adnexal cystic structures appear unchanged from prior. The uterus and urinary bladder are unremarkable. No pelvic free fluid or lymphadenopathy.
SKELETON: Chronic appearing moderate to severe compression fracture of L1. Retropulsion of the superior endplate of L1 contributes to at least a moderate degree of spinal canal stenosis. Chronic advanced degenerative changes of the spine. Mild
lumbar dextroscoliosis. Grade 1 degenerative anterolistheses of L3 on L4 and L4 on L5. Chronic degenerative findings also involve the bilateral sacroiliac joints, hips, and symphysis pubis.
IMPRESSION:
1. The inferior vena cava and bilateral iliac veins are patent. No evidence for venous thrombosis or extrinsic compression.
2. Cholelithiasis.
3. Colonic diverticulosis.
4. 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
5. Stable small bilateral adnexal cystic structures.
6. Chronic appearing moderate to severe compression fracture of L1 with retropulsion.
Electronically signed by Reynaldo Navarro, 12/18/2023 4:16 PM
Physical Exam
HEENT: No Jaundice
Cardiology: S1 and S2
Pulmonary: Clear
GI: Soft
Extremities: Other (slight RLE edema )
Neuro: Non Focal
[2023-12-20 06:44] LABS: Hematocrit 35.7 % (37.0-47.0); Hemoglobin 12.2 g/dL (12.0-16.0); Mean Corp Hgb Conc. 34.2 g/dL (33.0-37.0); Mean Corpuscular Hgb 29.9 pg (27.0-31.0); Mean Corpuscular Volume 87.5 fL (81.0-99.0); Platelet Count 568 10^3/uL (130-400); Red Blood Cell Count 4.08 10^6/uL (4.20-5.40); Red Cell Dist. Width 14.5 % (11.5-14.5); White Blood Cell Count 7.6 10^3/uL (4.8-10.8)
[2023-12-20 06:53] LABS: APTT 103.9 Sec (23.4-35.0)
[2023-12-20 07:03] LABS: Blood Urea Nitrogen 9 mg/dl (7-17); Calcium 9.3 mg/dl (8.4-10.2); Carbon Dioxide 27 mmol/L (22-30); Chloride 106 mmol/L (98-107); Estimated Creatinine Clearance 67 ml/min; Glucose 95 mg/dl (70-99); Magnesium 1.7 mg/dl (1.6-2.3); Potassium 4.2 mmol/L (3.5-5.1); Sodium 138 mmol/L (135-145); eGFR > 60.00
[2023-12-20 08:14] VITALS: BP 160/90
--- NOTE | 2023-12-20 09:49 | W.PN.HOSP.TC ---
Today's Communication/Plan
-
see A/P
Assessment / Plan
Assessment / Plan
HPI: 83 yo F with PMH RLE DVT diagnosed 2021 on chronic Eliquis and compliant p/w skin changes on the right leg.
She denied pain or swelling.
She also c/o generalized weakness and was unable to get up from the toilet.
CT AP:
1. The inferior vena cava and bilateral iliac veins are patent. No evidence for venous thrombosis or extrinsic compression.
2. Cholelithiasis.
3. Colonic diverticulosis.
4. 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
5. Stable small bilateral adnexal cystic structures.
6. Chronic appearing moderate to severe compression fracture of L1 with retropulsion.
A/P:
# acute recurrent RLE DVT depside reported compliance with Eliquis
RLE US: Nonocclusive right lower extremity DVT slightly progressed from prior
Consider Eliquis failure , Holding TOURIST ADVISER Eliquis
Started heparin drip, cont
Added Coumadin with current heparin bridge, daily INR, plan is to DC on Coumadin
CT AP was checked per heme to eval pathology of venous anatomy, CT noted patent IVC and BL iliac veins
Checking Phospholipid antibody panel per heme
Hematology on board
# Thrombocytosis, ? 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
Hematology on board
No ASA per heme with high risk of bleeding
# Acute ambulatory dysfunction with associated weakness
CT head showed no acute intracranial abnormality.
PT/OT recc SNF
# Unkempt thick, hypertrophic long curvy toe nails/ Mycotic Hypertrophic toenails both feet
Engine Hostler debrided and grinded all nails to reduce thickness, deformity and pain
suggest patient followup with personal civil service clerk in 3 months
# Essential HTN
Cont TOURIST ADVISER Lisinopril
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
Check MRI
Onc on board
DVT Px: Heparin bridge to Coumadin
Code: Full
Dispo: PT recc SNF
DW RN
Anticipated Discharge: 24 - 48 hours
Subjective/Interval History
-
Date of Service: December 20, 2023
Objective Data
-
Labs:
Laboratory Results
12/19/23 12/20/23
21:25 06:27
WBC 7.6
Hgb 12.2
Hct 35.7 L
Plt Count 568 H
APTT 155.3 H* 103.9 H
Sodium 138
Potassium 4.2
Chloride 106
Carbon Dioxide 27
BUN 9
Creatinine 0.6
Glucose 95
Calcium 9.3
Vital Signs:
Vital Signs
Temp Pulse Resp BP Pulse Ox
36.8 C 80 18 160/90 95
12/20/23 08:14 12/20/23 08:14 12/20/23 08:14 12/20/23 08:14 12/20/23 08:14
I&O
12/19/23 12/20/23 12/21/23
06:59 06:59 06:59
Intake Total 840 / 840 1149 / 1149
Balance 840 / 840 1149 / 1149
Review of Systems
-
All other systems: Reviewed and negative
Physical Exam
-
General: Well Developed, No Apparent Distress, Comfortable and Conversant; Negative Respiratory Distress
HEENT: Normocephalic, Atraumatic, Nose Appears Normal and Ears Appear Normal; Negative Oxygen
Respiratory: Clear to Auscultation and Non Labored Respirations; Negative Accessory Resp Muscle Use
Cardiac: Regular Rhythm and S1/S2
GI: Soft, Nontender, Nondistended and Normal Bowel Sounds
Skin: Warm and Dry
Neuro: Awake and Alert
Psych: Calm and Intact Judgement/Insight
Data Reviewed
-
CT Scan: Report Reviewed by me
Ultrasound: Report Reviewed by me
Labs: Labs Reviewed by me
[2023-12-20] MEDS: ZESTRIL 20 MG PO ×2 (09:58→20:14)
[2023-12-20 11:40] VITALS: BP 144/75
[2023-12-20 13:13] VITALS: BP 157/93; PULSE 81; O2SAT 96
--- NOTE | 2023-12-20 13:43 | CM ---
Chart reviewed; pt scheduled for MRI to evaluate a small cystic focus in the head of the pancreas. CM called Sunita Kern to make her aware that transfer to SNF is pending results of MRI and treatment plan if needed based on results. Since Sunita
lives a distance away I will keep her updated to avoid her driving here unecessarily.
CM will continue to follow for discharge planning with anticipated plan of d/c to [facility] when medically stable. SNF authorization will be required.
[2023-12-20 15:51] VITALS: BP 139/75
[2023-12-20] MEDS: COUMADIN 7.5 MG PO (20:09)
[2023-12-20 20:26] LABS: APTT 82.9 Sec (23.4-35.0)
[2023-12-20 23:00] VITALS: BP 154/84
[2023-12-20 23:10] LABS: Beta-2-Glycoprotein I Ab. IgA <10 SAU (<=20); Beta-2-Glycoprotein I Ab. IgG <10 SGU (<=20); Beta-2-Glycoprotein I Ab. IgM <10 SMU (<=20)
[2023-12-21 00:31] LABS: Anti-Xa Qualitative Interp Present (Not Present); Anticoagulant Med Neutralizati Hepzyme (Not Performed); Hexagonal Phospholipid Confirm Not Performed s (<=7.9); Neutralized PTT-LA Ratio 1.12 (<=1.20); Neutralized dRVTT Screen Ratio Not Performed (<=1.20); PTT-LA Ratio 3.11 (<=1.20); Prothrombin Time 15.5 s (12.0-15.5); Thrombin Time >150.0 s (<=19.5); dRVTT 1.1 Mix Ratio Not Performed (<=1.20); dRVTT Confirmation Ratio Not Performed (<=1.20); dRVTT Screen Ratio 0.97 (<=1.20)
[2023-12-21 02:16] LABS: Phosphatidylserine Ab, IgA 0 APS (0-19); Phosphatidylserine Ab, IgG 0 GPS (0-15); Phosphatidylserine Ab, IgM 0 MPS (0-21)
[2023-12-21 07:02] VITALS: BP 160/88
[2023-12-21 08:17] LABS: Cardiolipin IgA Antibody <10 APL (<=11); Cardiolipin IgM Antibody <10 MPL (<=12); Cardiolipin Igg Antibody <10 GPL (<=14)
[2023-12-21 08:28] LABS: Hemoglobin 12.1 g/dL (12.0-16.0); Mean Corp Hgb Conc. 33.6 g/dL (33.0-37.0); Mean Corpuscular Hgb 30.4 pg (27.0-31.0); Mean Corpuscular Volume 90.5 fL (81.0-99.0); Mean Platelet Volume 9.3 fL (7.4-10.4); Platelet Count 523 10^3/uL (130-400); Red Blood Cell Count 3.98 10^6/uL (4.20-5.40); Red Cell Dist. Width 14.2 % (11.5-14.5); White Blood Cell Count 7.7 10^3/uL (4.8-10.8)
[2023-12-21 08:37] LABS: INR 1.17; PT 14.9 Sec (11.4-14.6)
[2023-12-21] MEDS: ZESTRIL 20 MG PO ×2 (08:38→20:13)
[2023-12-21 08:39] LABS: APTT 78.4 Sec (23.4-35.0)
--- NOTE | 2023-12-21 09:18 | W.PN.ONC2 ---
Today's Communication / Plan
-
f/u MRI abdomen
Impression
Impression
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
Plan
Plan
CT scan does not reveal any possible structural etiology for the venous pathology. As mentioned, it is difficult to argue with the venous Dopplers which seem to show that she has failed Eliquis. My sense is that she will not do well on warfarin,
and that leaving her on Eliquis might be a viable option. Nevertheless, I have little choice but to recommend transitioning her to warfarin now. I would be reluctant to add aspirin to that in light of the possible essential thrombocytosis, as her
bleeding risk would go up quite a bit at her age.
We will see her in the office in 1-2 months for molecular studies regarding essential thrombocytosis.
Regarding the pancreas, a small 1.4 cm cystic focus in the head of the pancreas which appears to communicate with the main pancreatic duct was seen. Because of this unexpected Progression of DVT, I suspect an MRI to better evaluate this lesion
would be reasonable if she is agreeable as malignancy can lead to hypercoagulability. Still somewhat low pre-test probability. Essential Thrombocytosis if confirmed can also lead to hypercoagulability.
Subjective/Objective
Chief Complaint
no new complaints
Subjective
denies bleeding
Vital Signs:
Vital Signs
Temp Pulse Resp BP Pulse Ox
98.3 F 70 14 160/88 94
12/21/23 07:02 12/21/23 07:02 12/21/23 07:02 12/21/23 07:02 12/21/23 07:02
Lab Results:
Laboratory Data
WBC 7.7 10^3/uL (4.8-10.8) 12/21/23 07:50
Hgb 12.1 g/dL (12.0-16.0) 12/21/23 07:50
Plt Count 523 10^3/uL (130-400) H 12/21/23 07:50
PT 14.9 Sec (11.4-14.6) H 12/21/23 07:50
INR 1.17 12/21/23 07:50
APTT 78.4 Sec (23.4-35.0) H 12/21/23 07:50
eGFR > 60.00 12/20/23 06:27
Physical Exam
Physical examination shows the patient to be in no acute distress.
HEENT anicteric, no oral lesions
Chest is clear.
CV RRR
The abdomen is soft and nontender
Extremities reveal extensive varicosities throughout most of the right lower extremity.
Neurologic is grossly intact. Speech clear
Review of Systems
Review of Systems
Review of systems is notable for subjective otherwise negative
[2023-12-21 09:47] LABS: Blood Urea Nitrogen 11 mg/dl (7-17); Carbon Dioxide 23 mmol/L (22-30); Chloride 106 mmol/L (98-107); Estimated Creatinine Clearance 67 ml/min; Glucose 96 mg/dl (70-99); Magnesium 1.7 mg/dl (1.6-2.3); Sodium 136 mmol/L (135-145); eGFR > 60.00
--- NOTE | 2023-12-21 09:48 | W.PN.HOSP.TC ---
Today's Communication/Plan
-
see A/P
Assessment / Plan
Assessment / Plan
HPI: 83 yo F with PMH RLE DVT diagnosed 2021 on chronic Eliquis and compliant p/w skin changes on the right leg.
She denied pain or swelling.
She also c/o generalized weakness and was unable to get up from the toilet.
CT AP:
1. The inferior vena cava and bilateral iliac veins are patent. No evidence for venous thrombosis or extrinsic compression.
2. Cholelithiasis.
3. Colonic diverticulosis.
4. 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
5. Stable small bilateral adnexal cystic structures.
6. Chronic appearing moderate to severe compression fracture of L1 with retropulsion.
A/P:
# acute recurrent RLE DVT depside reported compliance with Eliquis
RLE US: Nonocclusive right lower extremity DVT slightly progressed from prior
Consider Eliquis failure , Holding GRAND JURY DEPUTY SHERIFF Eliquis
Started heparin drip, cont
Added Coumadin with current heparin bridge, daily INR, plan is to DC on Coumadin
CT AP was checked per heme to eval pathology of venous anatomy, CT noted patent IVC and BL iliac veins
Phospholipid antibody panel negative
Hematology on board
# Thrombocytosis, ? 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
Hematology on board
No ASA per heme with high risk of bleeding with Coumadin
# Acute ambulatory dysfunction with associated weakness
CT head showed no acute intracranial abnormality.
PT/OT recc SNF
# Unkempt thick, hypertrophic long curvy toe nails/ Mycotic Hypertrophic toenails both feet
Lab Systems Analyst debrided and grinded all nails to reduce thickness, deformity and pain
suggest patient followup with personal aerospace stress engineer in 3 months
# Essential HTN
Cont GRAND JURY DEPUTY SHERIFF Lisinopril
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
Check MRI
Onc on board
DVT Px: Heparin bridge to Coumadin
Code: Full
Dispo: PT recc SNF
DW RN
Anticipated Discharge: 24 - 48 hours
Subjective/Interval History
-
Date of Service: December 21, 2023
Objective Data
-
Labs:
Laboratory Results
12/21/23
07:50
WBC 7.7
Hgb 12.1
Hct 36.0 L
Plt Count 523 H
PT 14.9 H
INR 1.17
APTT 78.4 H
Sodium 136
Potassium 4.0
Chloride 106
Carbon Dioxide 23
BUN 11
Creatinine 0.6
Glucose 96
Calcium 9.0
Vital Signs:
Vital Signs
Temp Pulse Resp BP Pulse Ox
36.8 C 70 14 160/88 94
12/21/23 07:02 12/21/23 07:02 12/21/23 07:02 12/21/23 07:02 12/21/23 07:02
I&O
12/20/23 12/21/23 12/22/23
06:59 06:59 06:59
Intake Total 1149 / 1149 1332 / 1332
Balance 1149 / 1149 1332 / 1332
Review of Systems
-
All other systems: Reviewed and negative
Physical Exam
-
General: Well Developed, No Apparent Distress, Comfortable and Conversant; Negative Respiratory Distress
HEENT: Normocephalic, Atraumatic, Nose Appears Normal and Ears Appear Normal; Negative Oxygen
Respiratory: Clear to Auscultation and Non Labored Respirations; Negative Accessory Resp Muscle Use
Cardiac: Regular Rhythm and S1/S2
GI: Soft, Nontender, Nondistended and Normal Bowel Sounds
Skin: Warm and Dry
Neuro: Awake and Alert
Psych: Calm and Intact Judgement/Insight
Data Reviewed
-
CT Scan: Report Reviewed by me
Ultrasound: Report Reviewed by me
Labs: Labs Reviewed by me
[2023-12-21 11:24] VITALS: BP 144/84
[2023-12-21 15:02] VITALS: BP 130/81
[2023-12-21] MEDS: COUMADIN 7.5 MG PO (16:50)
[2023-12-21 16:55] VITALS: BP 157/94; PULSE 83; O2SAT 96
[2023-12-21] MEDS: HEPARIN 25000 UNITS/250 ML IV (22:33)
[2023-12-21 23:36] VITALS: BP 129/73
[2023-12-22] VITALS (7 sets, daily range): BP systolic 126–157; BP diastolic 68–94; PULSE 85; O2SAT 96
[2023-12-22 07:22] LABS: Hematocrit 35.4 % (37.0-47.0); Hemoglobin 12.1 g/dL (12.0-16.0); Mean Corp Hgb Conc. 34.2 g/dL (33.0-37.0); Mean Corpuscular Hgb 30.2 pg (27.0-31.0); Mean Corpuscular Volume 88.3 fL (81.0-99.0); Mean Platelet Volume 9.2 fL (7.4-10.4); Platelet Count 503 10^3/uL (130-400); Red Blood Cell Count 4.01 10^6/uL (4.20-5.40); Red Cell Dist. Width 14.3 % (11.5-14.5); White Blood Cell Count 7.5 10^3/uL (4.8-10.8)
[2023-12-22 07:31] LABS: INR 1.53; PT 18.5 Sec (11.4-14.6)
[2023-12-22 07:34] LABS: APTT 149.9 Sec (23.4-35.0)
[2023-12-22 07:53] LABS: Blood Urea Nitrogen 11 mg/dl (7-17); Calcium 8.9 mg/dl (8.4-10.2); Carbon Dioxide 26 mmol/L (22-30); Chloride 105 mmol/L (98-107); Estimated Creatinine Clearance 67 ml/min; Glucose 91 mg/dl (70-99); Potassium 4.1 mmol/L (3.5-5.1); Sodium 136 mmol/L (135-145); eGFR > 60.00
[2023-12-22] MEDS: ZESTRIL 20 MG PO ×2 (08:52→21:17)
--- NOTE | 2023-12-22 09:24 | W.PN.ONC2 ---
Today's Communication / Plan
-
warfarin bridge underway, could consider therapeutic enoxaparin for bridge
warfarin management per PCP/SNF upon discharge
MRI/MRCP to be considered
Impression
Impression
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
Thrombocytosis, possible essential
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
Plan
Plan
Heparin to warfarin bridge underway
OP follow up with hematology 1-2 months for molecular studies regarding essential thrombocytosis
MRI/MRCP to be considered
Subjective/Objective
Chief Complaint
denies bleeding
no new complaints
Subjective
Exams: MR Abdomen W/o & W Contrast
EXAMINATION: MRI of the abdomen without and with contrast, MRI of the abdomen without contrast/MRCP
INDICATION: 83-year-old with pancreatic cystic mass. Recent CT scan.
COMPARISON: CT of the abdomen and pelvis from December 18, [address] of the abdomen and pelvis from November 24, 2014.
FINDINGS: MRI of the abdomen is performed, consisting of coronal fast spin-echo T2, respiratory triggered axial fast spin-echo T2 without and with fat saturation, axial T1-weighted gradient-echo in phase and out of phase, axial diffusion-weighted,
and dynamic contrast-enhanced axial fat saturated 3-D T1 weighted gradient echo sequence. Additionally, MRCP images are obtained, consisting of thin section heavily T2-weighted images, and multiple radial thick section coronal oblique heavily
T2-weighted images.
The visualized lower chest, mild atelectasis in the posterior lower lungs, left greater than right. There is no evidence for significant pericardial effusion. No significant hiatal hernia is identified.
There are multiple small gallstones within the gallbladder. There is no MR evidence to suggest gallbladder wall thickening or pericholecystic edema.
There is no evidence for biliary ductal dilation. The common bile duct measures up to 3 mm, within normal range of less than 9 mm in this 83-year-old patient.
No significant fatty infiltration of the liver.
There is some motion artifact on postcontrast images, slightly limiting resolution. Given this limitation, there is no evidence of a focal hepatic lesion. The main portal vein and its branches appear patent as well as the SMV and the splenic vein.
Spleen appears within normal limits.
Both adrenal glands appear normal.
Within the proximal pancreatic tail, there is a well-defined cystic mass anterior to the main pancreatic duct, and this measures 8 mm in maximum dimension. In the pancreatic head, there is a lobulated mass which has predominantly cystic signal
intensity with no evidence of enhancement, and corresponds to the low-density mass seen on CT of the abdomen and pelvis. This mass measures 1.6 cm transverse by 1.5 cm AP by 1.6 cm craniocaudal.
Both of these cystic masses are most likely benign pancreatic cystic masses such as pseudocysts or intraductal papillary mucinous neoplasms. Based on recommendations from the [employer] in an 83-year-old patient, follow-up MRI of
the abdomen/MRCP would be recommended every 2 years x2, 4 total follow-up time frame of 4 years if these remain stable. Therefore, a follow-up MRI of the abdomen/MRCP is recommended in 2 years.
The main pancreatic duct appears within normal limits.
There is tortuosity of the abdominal aorta with no aortic aneurysm. No significantly enlarged abdominal lymph nodes are identified.
There are bilateral renal cysts including small central parapelvic cysts. No evidence for enhancing renal mass. Renal parenchymal thickness appears preserved bilaterally.
Mild to moderate dextroconvex scoliosis, centered at L2-3. There is moderate compression deformity of L1 vertebral body, unchanged from CT of the abdomen and pelvis of December 18, 2023 most likely old. There is retropulsion of the posterior and
superior margin of the L1 vertebral body, compressing the anterior thecal sac and extending close to the anterior margin of the spinal cord, probably without spinal cord compression.
IMPRESSION: There are 2 pancreatic cystic lesions as described, without enhancement. These most likely represent benign pancreatic cystic masses such as pseudocysts or intraductal papillary mucinous neoplasms. Based on recommendations from the
[employer], imaging follow-up with MRI/MRCP to be considered, with initial timeframe of 2 years in this 83-year-old patient. Management of incidental pancreatic cysts: A white paper of the ACR incidental findings committee. November
2016. Volume 14, issues 7, pages 911-199.
Cholelithiasis. No evidence for biliary ductal dilation. No evidence for bile duct calculus. The main pancreatic duct has normal caliber.
Bilateral renal cysts.
Moderate compression deformity of L1 vertebral body, unchanged from CT examination of December 18, 2023. This is most likely an old compression deformity with retropulsion of the posterior and superior margin of the L1 vertebral body.
Vital Signs:
Vital Signs
Temp Pulse Resp BP Pulse Ox
98 F 78 18 157/83 93
12/22/23 07:10 12/22/23 08:52 12/22/23 07:10 12/22/23 08:52 12/22/23 07:10
Lab Results:
Laboratory Data
WBC 7.5 10^3/uL (4.8-10.8) 12/22/23 07:01
Hgb 12.1 g/dL (12.0-16.0) 12/22/23 07:01
Plt Count 503 10^3/uL (130-400) H 12/22/23 07:01
PT 18.5 Sec (11.4-14.6) H 12/22/23 07:01
INR 1.53 12/22/23 07:01
APTT 149.9 Sec (23.4-35.0) H 12/22/23 07:01
eGFR > 60.00 12/22/23 07:01
Physical Exam
HEENT: Moist Mucous Membranes; No Jaundice
Cardiology: S1 and S2
Pulmonary: Clear
GI: Soft
Extremities: No Edema
Neuro: Non Focal
Review of Systems
Review of Systems
ROS notable for subjective, otherwise negative
--- NOTE | 2023-12-22 12:29 | W.PN.HOSP.TC ---
Today's Communication/Plan
-
DC ready
Lovenox bridge to Coumadin
MRCP outpatient
F/u PCP, Onc, GI outpatient
Assessment / Plan
Assessment / Plan
HPI: 83 yo F with PMH RLE DVT diagnosed 2021 on chronic Eliquis and compliant p/w skin changes on the right leg.
She denied pain or swelling.
She also c/o generalized weakness and was unable to get up from the toilet.
A/P:
# acute recurrent RLE DVT depside reported compliance with Eliquis
RLE US: Nonocclusive right lower extremity DVT slightly progressed from prior
Consider Eliquis failure , Holding RESUME SPECIALIST Eliquis
Switch to Lovenox for Coumadin Bridging
CT AP was checked per heme to eval pathology of venous anatomy, CT noted patent IVC and BL iliac veins
Phospholipid antibody panel negative
Hematology on board
# Thrombocytosis, ? 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
Hematology on board
No ASA per heme with high risk of bleeding with Coumadin
# Acute ambulatory dysfunction with associated weakness
CT head showed no acute intracranial abnormality.
PT/OT recc SNF
# Unkempt thick, hypertrophic long curvy toe nails/ Mycotic Hypertrophic toenails both feet
Beauty Culture Teacher debrided and grinded all nails to reduce thickness, deformity and pain
suggest patient followup with personal furniture reproducer in 3 months
# Essential HTN
Cont RESUME SPECIALIST Lisinopril
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
MRI: most likely represent benign pancreatic cystic masses such as pseudocysts or intraductal papillary mucinous neoplasms
imaging follow-up with MRI/MRCP to be considered, with initial timeframe of 2 years in this 83-year-old patient.
F/u GI/Onc outpatient
#Moderate compression deformity of L1 vertebral body
-unchanged from CT examination of December 18, 2023
-F/u outpatient
DVT Px: Heparin bridge to Coumadin
Code: Full
Dispo: PT recc SNF
Anticipated Discharge: Within 24 hours
Subjective/Interval History
-
Date of Service: December 22, 2023
no acute events
Objective Data
-
Labs:
Laboratory Results
12/22/23 12/22/23
07:01 16:00
WBC 7.5
Hgb 12.1
Hct 35.4 L
Plt Count 503 H
PT 18.5 H
INR 1.53
APTT 149.9 H Pending
Sodium 136
Potassium 4.1
Chloride 105
Carbon Dioxide 26
BUN 11
Creatinine 0.6
Glucose 91
Calcium 8.9
Vital Signs:
Vital Signs
Temp Pulse Resp BP Pulse Ox
98.6 F 79 14 126/68 96
12/22/23 11:10 12/22/23 11:10 12/22/23 11:10 12/22/23 11:10 12/22/23 11:10
I&O
12/21/23 12/22/23 12/23/23
06:59 06:59 06:59
Intake Total 1332 / 1332 732 / 732
Balance 1332 / 1332 732 / 732
Review of Systems
-
History Source: Patient
All other systems: Not reviewed unless documented
Physical Exam
-
General: Well Developed, No Apparent Distress, Comfortable and Conversant; Negative Respiratory Distress
HEENT: Normocephalic, Atraumatic, Nose Appears Normal and Ears Appear Normal; Negative Oxygen
Respiratory: Clear to Auscultation and Non Labored Respirations; Negative Accessory Resp Muscle Use
Cardiac: Regular Rhythm and S1/S2
GI: Soft, Nontender, Nondistended and Normal Bowel Sounds
Skin: Warm and Dry
Neuro: Awake and Alert
Psych: Calm and Intact Judgement/Insight
Data Reviewed
-
CT Scan: Report Reviewed by me
Ultrasound: Report Reviewed by me
Labs: Labs Reviewed by me
[2023-12-22 13:44] LABS: Urine Albumin Negative (Neg - Trace); Urine Bilirubin Negative (Negative); Urine Character Slightly Cloudy (Clear); Urine Color Yellow; Urine Glucose Negative (Negative); Urine Ketone Negative (Negative); Urine Leukocyte 2+ (Negative); Urine Nitrite Negative (Negative); Urine Occult Blood Trace (Negative); Urine Urobilinogen 2+ (Neg - 1+)
[2023-12-22 14:02] LABS: Urine Bacteria Few (Negative); Urine White Cell 80-90 /HPF (0-5)
[2023-12-22] MEDS: LOVENOX 60 MG SC (14:25)
[2023-12-22] MEDS: TYLENOL 650 MG PO (14:26)
--- NOTE | 2023-12-22 15:49 | CM ---
JOSIE called Marilia at [facility] to check on bed availability for SNF. No bed available today, but there is likelihood that a bed will be available tomorrow.
Call to Sunita Kern, close family friend and POA, , to advise of probable bed availability at [facility] tomorrow. She would like w/c van transport to be arranged for transfer.
PLAN: JOSIE pursuing authorization for SNF in am at [facility].
[2023-12-22 16:11] LABS: APTT 51.4 Sec (23.4-35.0)
--- NOTE | 2023-12-22 16:41 | CM ---
I spoke with Marilia ([facility]) who advised [facility] may have a bed available tomorrow for transfer.
[facility] SNF level 1 12/22-12/27/2023 approved. Authorization number [id number] provided by Noel.
Please contact family friend Sunita Kern, , for w/c van payment to be made once arrangements made.
[facility] Report: [phone]
[facility]
[2023-12-22] MEDS: COUMADIN 7.5 MG PO (17:39)
[2023-12-23] MEDS: LOVENOX 60 MG SC ×2 (01:47→12:26)
[2023-12-23 07:16] LABS: Hematocrit 36.8 % (37.0-47.0); Hemoglobin 12.5 g/dL (12.0-16.0); Mean Corpuscular Hgb 29.9 pg (27.0-31.0); Mean Platelet Volume 9.5 fL (7.4-10.4); Platelet Count 533 10^3/uL (130-400); Red Blood Cell Count 4.18 10^6/uL (4.20-5.40); Red Cell Dist. Width 14.4 % (11.5-14.5); White Blood Cell Count 7.2 10^3/uL (4.8-10.8)
[2023-12-23 07:20] VITALS: BP 148/89
[2023-12-23 07:22] LABS: PT 23.4 Sec (11.4-14.6)
[2023-12-23 07:44] LABS: Blood Urea Nitrogen 13 mg/dl (7-17); Calcium 9.1 mg/dl (8.4-10.2); Carbon Dioxide 27 mmol/L (22-30); Chloride 106 mmol/L (98-107); Estimated Creatinine Clearance 67 ml/min; Glucose 90 mg/dl (70-99); Potassium 4.3 mmol/L (3.5-5.1); Sodium 136 mmol/L (135-145); eGFR > 60.00
--- NOTE | 2023-12-23 08:38 | CM ---
Addendum entered by Jacquelyn Bowie 12/23/23 11:42:
No available beds today. Physician updated and patient aware. CM will continue to follow for discharge planning needs.
Original Note:
VM left for admissions to confirm bed availability at [facility]. CM will update physician as soon as response received.
[2023-12-23] MEDS: ZESTRIL 20 MG PO ×2 (08:56→21:12)
[2023-12-23 09:38] LABS: Urine Albumin Negative (Neg - Trace); Urine Bilirubin Negative (Negative); Urine Character Clear (Clear); Urine Color Yellow; Urine Glucose Negative (Negative); Urine Ketone Negative (Negative); Urine Leukocyte 1+ (Negative); Urine Nitrite Negative (Negative); Urine Occult Blood Trace (Negative); Urine Urobilinogen 2+ (Neg - 1+)
[2023-12-23 10:00] LABS: Urine Mucus Few; Urine Squamous Cell 21-25 /LPF (Few)
[2023-12-23 10:01] LABS: Urine Hyaline Cast 0-2 /LPF (0-2)
[2023-12-23 10:02] LABS: Urine Bacteria Few (Negative); Urine White Cell 21-25 /HPF (0-5)
--- NOTE | 2023-12-23 11:38 | W.PN.HOSP.TC ---
Today's Communication/Plan
-
Lovenox to Coumadin bridging
Ceftriaxone, f/u urine cultures
Pending placement
Assessment / Plan
Assessment / Plan
HPI: 83 yo F with PMH RLE DVT diagnosed 2021 on chronic Eliquis and compliant p/w skin changes on the right leg.
She denied pain or swelling.
She also c/o generalized weakness and was unable to get up from the toilet.
A/P:
# acute recurrent RLE DVT despite reported compliance with Eliquis
RLE US: Nonocclusive right lower extremity DVT slightly progressed from prior
Consider Eliquis failure , Holding ASSURANCE ASSISTANT Eliquis
Switch to Lovenox for Coumadin Bridging
CT AP was checked per heme to eval pathology of venous anatomy, CT noted patent IVC and BL iliac veins
Phospholipid antibody panel negative
Hematology on board
# Thrombocytosis, ? 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
Hematology on board
No ASA per heme with high risk of bleeding with Coumadin
# Acute ambulatory dysfunction with associated weakness
CT head showed no acute intracranial abnormality.
PT/OT recc SNF - pending placement
#UTI
-as per Nurse - has foul smelling urine
-F/u cultures
-empiric Abx
# Unkempt thick, hypertrophic long curvy toe nails/ Mycotic Hypertrophic toenails both feet
Management Developer debrided and grinded all nails to reduce thickness, deformity and pain
suggest patient followup with personal tool/die maker in 3 months
# Essential HTN
Cont ASSURANCE ASSISTANT Lisinopril
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
MRI: most likely represent benign pancreatic cystic masses such as pseudocysts or intraductal papillary mucinous neoplasms
imaging follow-up with MRI/MRCP to be considered, with initial timeframe of 2 years in this 83-year-old patient.
F/u GI/Onc outpatient - spoke to GI - confirms outpatient eval can be done
#Moderate compression deformity of L1 vertebral body
-unchanged from CT examination of December 18, 2023
-F/u outpatient
DVT Px: Lovenox to Coumadin
Code: Full
Dispo: PT recc SNF
Anticipated Discharge: 24 - 48 hours
Subjective/Interval History
-
Date of Service: December 23, 2023
No acute events
Objective Data
-
Labs:
Laboratory Results
12/23/23
06:27
WBC 7.2
Hgb 12.5
Hct 36.8 L
Plt Count 533 H
PT 23.4 H
INR 2.10
Sodium 136
Potassium 4.3
Chloride 106
Carbon Dioxide 27
BUN 13
Creatinine 0.6
Glucose 90
Calcium 9.1
Vital Signs:
Vital Signs
Temp Pulse Resp BP Pulse Ox
98.1 F 67 16 148/89 97
12/23/23 07:20 12/23/23 08:56 12/23/23 07:20 12/23/23 08:56 12/23/23 10:44
I&O
12/22/23 12/23/23 12/24/23
06:59 06:59 06:59
Intake Total 732 / 732
Output Total 400 / 400
Balance 732 / 732 -400 / -400
Review of Systems
-
History Source: Patient
All other systems: Not reviewed unless documented
Physical Exam
-
General: Well Developed, No Apparent Distress, Comfortable and Conversant; Negative Respiratory Distress
HEENT: Normocephalic, Atraumatic, Nose Appears Normal and Ears Appear Normal; Negative Oxygen
Respiratory: Clear to Auscultation and Non Labored Respirations; Negative Accessory Resp Muscle Use
Cardiac: Regular Rhythm and S1/S2
GI: Soft, Nontender, Nondistended and Normal Bowel Sounds
Skin: Warm and Dry
Neuro: Awake and Alert
Psych: Calm and Intact Judgement/Insight
Data Reviewed
-
CT Scan: Report Reviewed by me
Ultrasound: Report Reviewed by me
Labs: Labs Reviewed by me
[2023-12-23] MEDS: ROCEPHIN 1000 MG IV (12:25)
[2023-12-23] MEDS: FLUSH (NSS) 1 FLUSH IV (12:26)
[2023-12-23] MEDS: STERILE WATER FOR INJECTION 10 ML IV (12:26)
[2023-12-23 15:05] VITALS: BP 169/95
--- NOTE | 2023-12-23 16:02 | PTCARENOTE ---
Pt AAO x3, forgetful at times. ABEBE; can position self in bed; needs assist x2 to transfer to chair/BSC- pt very hesitant to stand. VSS. pt has +1 edema RLE. On room air- pulseox 95%, no SOB noted. Abd soft, rounded, ish PO well. Voids on BSC;
occ incont. Resting in bed at present, no c/o. Will continue to monitor.
[2023-12-23] MEDS: COUMADIN 7.5 MG PO (17:58)
[2023-12-23 23:30] VITALS: BP 124/72
[2023-12-24] MEDS: LOVENOX 60 MG SC (00:28)
[2023-12-24 06:34] LABS: Hematocrit 36.1 % (37.0-47.0); Hemoglobin 12.1 g/dL (12.0-16.0); Mean Corp Hgb Conc. 33.5 g/dL (33.0-37.0); Mean Corpuscular Hgb 30.6 pg (27.0-31.0); Mean Corpuscular Volume 91.4 fL (81.0-99.0); Mean Platelet Volume 9.4 fL (7.4-10.4); Platelet Count 465 10^3/uL (130-400); Red Blood Cell Count 3.95 10^6/uL (4.20-5.40); Red Cell Dist. Width 14.6 % (11.5-14.5); White Blood Cell Count 6.2 10^3/uL (4.8-10.8)
[2023-12-24 06:45] LABS: INR 2.95; PT 30.6 Sec (11.4-14.6)
[2023-12-24 07:03] LABS: Blood Urea Nitrogen 13 mg/dl (7-17); Carbon Dioxide 29 mmol/L (22-30); Chloride 106 mmol/L (98-107); Estimated Creatinine Clearance 67 ml/min; Glucose 91 mg/dl (70-99); Potassium 4.1 mmol/L (3.5-5.1); Sodium 137 mmol/L (135-145); eGFR > 60.00
[2023-12-24 07:10] VITALS: BP 151/87
[2023-12-24] MEDS: ZESTRIL 20 MG PO ×2 (09:52→19:53)
--- NOTE | 2023-12-24 10:07 | CM ---
Addendum entered by Jacquelyn Bowie 12/24/23 12:30:
another message left for [facility] admissions. Patient has standing auth that may need to be updated if no beds available today. CM will update patient and physician.
Original Note:
CM called to [facility] admissions and VM left for Marilia. Awaiting call back to confirm bed availability.
[2023-12-24] MEDS: TYLENOL 650 MG PO (10:13)
--- NOTE | 2023-12-24 11:15 | W.PN.HOSP.TC ---
Today's Communication/Plan
-
Coumadin 6 mg today
SNF
Assessment / Plan
Assessment / Plan
HPI: 83 yo F with PMH RLE DVT diagnosed 2021 on chronic Eliquis and compliant p/w skin changes on the right leg.
She denied pain or swelling.
She also c/o generalized weakness and was unable to get up from the toilet.
CVS: S1-S2 normal
Chest: CTA B/L
Abdomen: Soft, NT / Bowel sounds present
Extremities: mild RLE edema, normal pulses
FORKLIFT OPERATOR: Non focal exam
A/P:
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
RLE US: Nonocclusive right lower extremity DVT slightly progressed from prior
Consider Eliquis failure , Holding MANAGER INTEL Eliquis
Lovenoxto Coumadin Bridging- No0w INR above 2 for 2 days, stop Lovenox.
CT AP was checked per heme to eval pathology of venous anatomy, CT noted patent IVC and BL iliac veins
Phospholipid antibody panel negative
Hematology following
# Thrombocytosis, ? 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
Hematology on board
No ASA per heme with high risk of bleeding with Coumadin
# Acute ambulatory dysfunction with associated weakness
CT head showed no acute intracranial abnormality.
PT/OT recc SNF - pending placement
#UTI
-F/u cultures
-Empiric Abx
# Unkempt thick, hypertrophic long curvy toe nails/ Mycotic Hypertrophic toenails both feet
Fruit Ii Farmworker debrided and grinded all nails to reduce thickness, deformity and pain
suggest patient followup with personal placement manager in 3 months
# Essential HTN
Cont MANAGER INTEL Lisinopril
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
MRI: most likely represent benign pancreatic cystic masses such as pseudocysts or intraductal papillary mucinous neoplasms
imaging follow-up with MRI/MRCP to be considered, with initial timeframe of 2 years in this 83-year-old patient.
F/u GI/Onc outpatient - spoke to GI - confirms outpatient eval can be done
#Moderate compression deformity of L1 vertebral body
-unchanged from CT examination of December 18, 2023
-F/u outpatient
# Diverticulosis
#DVT Px: Coumadin
#Code: Full
Anticipated Discharge: Within 24 hours
Subjective/Interval History
-
Date of Service: December 24, 2023
Objective Data
-
Labs:
Laboratory Results
12/24/23
06:15
WBC 6.2
Hgb 12.1
Hct 36.1 L
Plt Count 465 H
PT 30.6 H
INR 2.95
Sodium 137
Potassium 4.1
Chloride 106
Carbon Dioxide 29
BUN 13
Creatinine 0.6
Glucose 91
Calcium 9.0
Vital Signs:
Vital Signs
Temp Pulse Resp BP Pulse Ox
98.2 F 72 18 151/87 96
12/24/23 07:10 12/24/23 07:10 12/24/23 07:10 12/24/23 07:10 12/24/23 07:10
I&O
12/23/23 12/24/23 12/25/23
06:59 06:59 06:59
Intake Total 560 / 560
Output Total 400 / 400 200 / 200
Balance -400 / -400 360 / 360
[2023-12-24] MEDS: STERILE WATER FOR INJECTION 10 ML IV (11:51)
[2023-12-24] MEDS: ROCEPHIN 1000 MG IV (11:52)
[2023-12-24 15:15] VITALS: BP 125/74
[2023-12-24 15:59] VITALS: BP 122/62; PULSE 84; O2SAT 96
[2023-12-24] MEDS: COUMADIN 6 MG PO (17:50)
[2023-12-24 23:42] VITALS: BP 146/78
[2023-12-25 07:10] VITALS: BP 140/72
[2023-12-25 07:52] LABS: Hematocrit 35.1 % (37.0-47.0); Hemoglobin 11.9 g/dL (12.0-16.0); Mean Corp Hgb Conc. 33.9 g/dL (33.0-37.0); Mean Corpuscular Hgb 30.1 pg (27.0-31.0); Mean Corpuscular Volume 88.9 fL (81.0-99.0); Mean Platelet Volume 9.6 fL (7.4-10.4); Platelet Count 461 10^3/uL (130-400); Red Blood Cell Count 3.95 10^6/uL (4.20-5.40); Red Cell Dist. Width 14.5 % (11.5-14.5); White Blood Cell Count 6.7 10^3/uL (4.8-10.8)
[2023-12-25 08:05] LABS: INR 2.99
[2023-12-25] MEDS: ZESTRIL 20 MG PO (08:06)
[2023-12-25] MEDS: MIRALAX 17 GRAMS PO (08:12)
[2023-12-25 08:15] LABS: Blood Urea Nitrogen 13 mg/dl (7-17); Calcium 8.8 mg/dl (8.4-10.2); Carbon Dioxide 26 mmol/L (22-30); Chloride 103 mmol/L (98-107); Estimated Creatinine Clearance 67 ml/min; Glucose 86 mg/dl (70-99); Potassium 4.3 mmol/L (3.5-5.1); Sodium 135 mmol/L (135-145); eGFR > 60.00
--- NOTE | 2023-12-25 13:08 | PTCARENOTE ---
Patient had complaints of constipation. Given Miralax as ordered. Patient had large formed BM.
--- NOTE | 2023-12-25 13:29 | W.PN.HOSP.TC ---
Addendum entered and electronically signed by Iron Sampson MD 12/27/23 15:09:
[id number]
Original Note:
Today's Communication/Plan
-
coumadin
pending dc - cm aware
Assessment / Plan
Assessment / Plan
HPI: 83 yo F with PMH RLE DVT diagnosed 2021 on chronic Eliquis and compliant p/w skin changes on the right leg.
She denied pain or swelling.
She also c/o generalized weakness and was unable to get up from the toilet.
CVS: S1-S2 normal
Chest: CTA B/L
Abdomen: Soft, NT / Bowel sounds present
Extremities: mild RLE edema, normal pulses
SUPERVISOR LIVESTOCK YARD: Non focal exam
A/P:
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
RLE US: Nonocclusive right lower extremity DVT slightly progressed from prior
Consider Eliquis failure , Holding HOSE OPERATOR Eliquis
Lovenox to Coumadin Bridging- can stop Lovenox.
Continue Coumadin; INR Goal 2-3
CT AP was checked per heme to eval pathology of venous anatomy, CT noted patent IVC and BL iliac veins
Phospholipid antibody panel negative
Hematology following
# Thrombocytosis, ? 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
Hematology on board
No ASA per heme with high risk of bleeding with Coumadin
# Acute ambulatory dysfunction with associated weakness
CT head showed no acute intracranial abnormality.
PT/OT recc SNF - pending placement
#Asymptomatic Bacteruria
-cultures negative
-stop abx
# Unkempt thick, hypertrophic long curvy toe nails/ Mycotic Hypertrophic toenails both feet
Feather Edger debrided and grinded all nails to reduce thickness, deformity and pain
suggest patient followup with personal icu rn in 3 months
# Essential HTN
Cont HOSE OPERATOR Lisinopril
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
MRI: most likely represent benign pancreatic cystic masses such as pseudocysts or intraductal papillary mucinous neoplasms
imaging follow-up with MRI/MRCP to be considered, with initial timeframe of 2 years in this 83-year-old patient.
F/u GI/Onc outpatient - spoke to GI - confirms outpatient eval can be done
#Moderate compression deformity of L1 vertebral body
-unchanged from CT examination of December 18, 2023
-F/u outpatient
# Diverticulosis
#DVT Px: Coumadin
#Code: Full
Anticipated Discharge: Within 24 hours
Subjective/Interval History
-
Date of Service: December 25, 2023
no acute events
Objective Data
-
Labs:
Laboratory Results
12/25/23
06:59
WBC 6.7
Hgb 11.9 L
Hct 35.1 L
Plt Count 461 H
PT 31.0 H
INR 2.99
Sodium 135
Potassium 4.3
Chloride 103
Carbon Dioxide 26
BUN 13
Creatinine 0.6
Glucose 86
Calcium 8.8
Vital Signs:
Vital Signs
Temp Pulse Resp BP Pulse Ox
98.1 F 75 18 140/72 95
12/25/23 07:10 12/25/23 07:10 12/25/23 07:10 12/25/23 07:10 12/25/23 08:58
I&O
12/24/23 12/25/23 12/26/23
06:59 06:59 06:59
Intake Total 560 / 560 600 / 600
Output Total 200 / 200
Balance 360 / 360 600 / 600
Review of Systems
-
History Source: Patient
All other systems: Not reviewed unless documented
Physical Exam
-
General: Well Developed, No Apparent Distress, Comfortable and Conversant; Negative Respiratory Distress
HEENT: Normocephalic, Atraumatic, Nose Appears Normal and Ears Appear Normal; Negative Oxygen
Respiratory: Clear to Auscultation and Non Labored Respirations; Negative Accessory Resp Muscle Use
Cardiac: Regular Rhythm and S1/S2
GI: Soft, Nontender, Nondistended and Normal Bowel Sounds
Skin: Warm and Dry
Neuro: Awake and Alert
Psych: Calm and Intact Judgement/Insight
Data Reviewed
-
CT Scan: Report Reviewed by me
Ultrasound: Report Reviewed by me
Labs: Labs Reviewed by me
[2023-12-25 15:25] VITALS: BP 119/73
--- NOTE | 2023-12-25 17:02 | CM ---
JOSIE met with Virginia and spoke with her neice, Sunita, several times throughout the day today. Authorization was updated with Rach Berrios for dates of 12/24-12/29/2023 (next review date) and this was shared with Marilia at [facility].
Plan is for transfer to [facility] until there is a bed at [facility]; the facility will transport Virginia to [facility] when the bed becomes available.
I spoke with Virginia and her Mati this evening to review the discharge plans and both were agreeable.
Plan: Discharge to [facility] today at 1845 via ambulance.
Report: [phone]
--- NOTE | 2023-12-25 17:43 | PTCARENOTE ---
Correction from previous note - NIH score is 1 for right sided facial droop not a 2.
[2023-12-25] MEDS: COUMADIN 6 MG PO (18:10)
--- NOTE | 2023-12-25 18:21 | W.DS.TRANS ---
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
-
Discharge Instructions:
Discharge Diagnosis/Procedures # Acute recurrent RLE DVT despite reported
compliance with Eliquis
Diet Low Cholesterol,Low Fat
Blood Work CBC in 1 week with PCP; F/u INR closely while on
coumadin. INR Goal 2-3
Others Tests MRI with PCP and consider follow up with GI to
evaluate the incidental finding of pancreatic
cyst
Instructions:
Stand-Alone Forms:
Changes to Home Medications: Yes
Discharge Medications:
DC Medications w/original date entered in [employer]
cholecalciferol (vitamin D3) 50 mcg (2,000 unit) tablet 50 mcg PO DAILY Supplement 10/05/23
cyanocobalamin (vitamin B-12) 500 mcg tablet 500 mcg PO DAILY Supplement 10/05/23
lisinopril 20 mg tablet 20 mg PO BID Blood Pressure 10/05/23
omega 1-xbk-ywa-fish oil 1,000 mg (120 mg-180 mg) capsule (Fish Oil) 1 cap PO DAILY High Cholesterol 10/05/23
warfarin 3 mg tablet (Jantoven) 6 mg (2 x 3 mg) PO QPM #0 tabs 12/25/23
Home Medication Changes
warfarin 3 mg tablet (Jantoven) 6 mg (2 x 3 mg) PO QPM #0 tabs 12/25/23
Pending Results: No
--- NOTE | 2023-12-25 18:35 | PTCARENOTE ---
Peripheral IV removed. Patient aware that she is awaiting ambulance transport to [facility]. No call back received from facility for report.
--- NOTE | 2023-12-25 18:45 | PTCARENOTE ---
Report called to Faustino Marcus RN. Awaiting ambulance transport.
[2023-12-25 18:57] VITALS: BP 146/90
== END 2023-12-25 19:35 | DRG 300 ==
LOC: 4 EAST ACU 00:34
PROVIDERS: Internal Medicine; ADMITTING PHYSICIAN Internal Medicine; ATTENDING PHYSICIAN Internal Medicine; EMERGENCY PHYSICIAN Emergency Medicine; FAMILY PHYSICIAN Family Medicine; OTHER PHYSICIAN Internal Medicine Hematology & Oncology; OTHER PHYSICIAN Podiatrist Primary Podiatric Medicine
PROC: 0HBRXZZ Excision of Toe Nail, External Approach (ICD-10-PCS; 2023-12-18)
DX: I82.411 Acute embolism and thrombosis of right femoral vein (principal); K86.2 Cyst of pancreas; M48.56XA Collapsed vertebra, not elsewhere classified, lumbar region, initial encounter for fracture; I10 Essential (primary) hypertension; D75.839 Thrombocytosis, unspecified; I83.91 Asymptomatic varicose veins of right lower extremity; Q84.5 Enlarged and hypertrophic nails; K57.30 Diverticulosis of large intestine without perforation or abscess without bleeding; R26.89 Other abnormalities of gait and mobility; R53.1 Weakness; R53.83 Other fatigue; R82.71 Bacteriuria; Z79.01 Long term (current) use of anticoagulants; Z79.899 Other long term (current) drug therapy; Z86.718 Personal history of other venous thrombosis and embolism
CPT/HCPCS: 70450; 71045; 74177; 74183; 80048; 80053; 81003; 81015; 83735; 85025; 85027; 85520; 85525; 85610; 85613; 85670; 85730; 86146; 86147; 86148; 87086; 87811; 93005; 93971; 97116; 97162; 97166; 97530; 97535; 99285; A9575; Q9967

== ENCOUNTER 2024-03-18 13:31 | Emergency (ER) | payer OTHER, SELFPAY ==
[2024-03-18 13:55] VITALS: BP 125/74
--- NOTE | 2024-03-18 13:56 | ED.GENMED ---
ED Provider Triage
-
Patient seen by provider in Triage?: Seen in Triage
Attestation: A medical screening examination has been initiated by a qualified medical provider. Based on the assessment performed at this time, it has been determined that an emergent medical condition may exist and the patient has been informed
that further medical evaluation and possible additional diagnostic testing may be needed.
HPI: 83 yo female on Coumadin for DVT, sent here via phone call from Dr. Mejia's office for 'high' Coumadin level. Denies bleeding
GENERAL: Alert , in no apparent distress
EYE: No visual abnormalities.
ENT: No visible abnormalities.
LUNGS: No acute respiratory distress
NEUROLOGICAL: Alert and oriented
SKIN: Skin intact. No visible changes.
MUSCULOSKELETAL: Moving extremities normally
PSYCH: Normal and appropriate interaction.
This is a medical evaluation conducted in person to initiate diagnostic evaluation and provide initial therapeutics. Please see further documentation by the treating clinician.
History of Present Illness
General
Chief Complaint: Abnormal Lab Value
Source: patient, family and other ([facility] nurse practitioner [employer] OFFICER)
Exam Limitations: none
Time Seen by Provider: 03/18/24 15:35
History of Present Illness
History of Present Illness:
83-year-old female history of DVT on Coumadin states that she had her blood work drawn 3 days ago and was called today by her [facility] provider stating she should go to the ER because her INR was high on Monday when her blood was drawn. Patient does
not know what the number was. She denies bleeding or change in color of her stools.
Past History
Past History
ED Past Medical History: HTN and Other (DVT)
ED Past Surgical History: None
Social History
Tobacco: Non-smoker
Alcohol: Occasional
Personal:
Living: alone (19/12 caregiver)
Review of Systems
Review of Systems
Allergies reviewed?: Yes
All Other Systems: ROS reviewed and negative except as documented in HPI and ROS
Constitutional: Denies fever or fatigue
Respiratory: Denies trouble breathing
Cardiac: Denies chest pain
ABD/GI: Denies abdominal pain, bloody stools or black stools
: Denies bleeding
Musculoskeletal: Denies edema
Skin: Reports no symptoms
Neurological: Reports no symptoms
Phy Exam
Physical Exam
Physical Exam:
GENERAL: No acute distress. A&Ox3.
CONSTITUTIONAL: Afebrile.
EYES: Clear, conjunctivae normal
ENMT: moist mucus membranes, Pharynx nl
RESPIRATORY: Regular respirations, nonlabored, lungs clear.
CARDIOVASCULAR: Regular rate and rhythm, no murmurs, no rubs.
GI: Soft, nontender
MUSCULOSKELETAL: Moves with ease. Well perfused.
SKIN: Warm, dry, pink
PSYCH: Normal mood and affect. Well kept, interactive and appropriate
NEUROLOGIC: Awake, alert and oriented. No focal neurological deficits
Course
Orders/Labs/Results
Orders:
Orders
03/18/24 14:08
Complete Blood Count/With Diff Urgent
Comprehensive Metabolic Panel Urgent
Prothrombin Time Urgent
Abnormal Lab Results
03/18/24
14:08
RBC 4.14 L 10^6/uL
(4.20-5.40)
Hct 36.0 L %
(37.0-47.0)
RDW 16.0 H %
(11.5-14.5)
Plt Count 688 H 10^3/uL
(130-400)
Absolute Monos (auto) 0.9 H 10^3/uL
(0.1-0.6)
Monocytes % 9.7 H %
(1.7-9.3)
PT 61.1 H Sec
(11.4-14.6)
INR 7.03 H*
BUN 23 H mg/dl
(7-17)
Alkaline Phosphatase 172 H U/L
(38-126)
03/18/24 14:08
03/18/24 14:08
Vital Signs
Initial and Last Documented VS:
Initial Vital Signs
Temp Pulse Resp BP Pulse Ox
97.7 F 72 18 125/74 96
03/18/24 13:55 03/18/24 13:55 03/18/24 13:55 03/18/24 13:55 03/18/24 13:55
Last Documented Vital Signs
Temp Pulse Resp BP Pulse Ox
97.7 F 72 18 125/74 96
03/18/24 13:55 03/18/24 13:55 03/18/24 13:55 03/18/24 13:55 03/18/24 13:55
MDM/Problems Addressed
Differential Diagnosis Includes:
Coumadin toxicity, bleeding
MDM/Problems Addressed:
83-year-old female history of DVT on Coumadin states that she had her blood work drawn 3 days ago and was called today by her [facility] provider stating she should go to the ER because her INR was high on Monday when her blood was drawn. Patient does
not know what the number was. She denies bleeding or change in color of her stools.
PE unremarkable.
No sing of bleeding
Pt stable for discharge to care of niece.
Spoke with [facility] CONSOLIDATOR Maria A who states pt has new 19/12 caregiver who has been giving her Coumadin BID instead of OD for past week or so. INR on Mon, reported today was 6.8.
Spoke with niece who is a nurse and explained to hold Coumadin and labs will be redrawn in 4 days per DIANNA Saha.
*Critical Care Note
Total Time (30-74mins, 75-104mins- exclusive of procedures): Not Applicable
ED Attending Note
-
Portions of this chart may have been created with voice recognition software.� Occasional wrong word or��sound alike� substitutions may have occurred due to the inherent limitations of voice recognition software.
Discharge Plan
Departure
Patient Disposition: Home (Routine Discharge)
Date of Disposition: 03/18/24
Time of Disposition: 15:41
Patient with high blood pressure during this ER visit?: No
Condition: Good
Discharge Problem:
Coumadin toxicity
Prescriptions:
No Action
lisinopril 20 mg Tablet
20 mg PO BID
cyanocobalamin (vitamin B-12) 500 mcg Tablet
500 mcg PO DAILY
cholecalciferol (vitamin D3) 50 mcg (2,000 unit) Tablet
50 mcg PO DAILY
omega 8-luz-yvh-fish oil [Fish Oil] 1,000 mg (120 mg-180 mg) Capsule
1 cap PO DAILY
warfarin [Jantoven] 3 mg Tablet
6 mg PO QPM Qty: 0 0RF
Referrals:
Adrien Gamble MD [Family Provider] -
Activity Restrictions/Additional Instructions:
As we discussed and was discussed with your [employer] CONSOLIDATOR Maria A, hold Coumadin until you get your blood test result from blood work which will be done on Monday.
Return here IMMEDIATELY for any fall hitting your head, dark or bloody stools, headache.
Interventions
Interventions:
*Risk Screen - Suicide Last Done: 03/18/24 13:55
*Neglect/Abuse Screening Last Done: 03/18/24 13:55
*ED COVID-19 Vaccine History Last Done: 03/18/24 13:55
*Nursing Disposition Last Done: 03/18/24 17:31
Discharge Date and Time
Discharge Date/Time: 03/18/24 17:31
Print Language: BULGARIAN
[2024-03-18 14:26] LABS: % Basophils 0.6 % (0-2); % Eosinophils 2.3 % (0-6); % Immature Granulocytes 0.2 % (0-0.5); % Lymphocytes 22.5 % (20.5-51.1); % Monocytes 9.7 % (1.7-9.3); % Neutrophils 64.7 % (42.2-75.2); Absolute Basophils 0.1 10^3/uL (0-0.2); Absolute Eosinophils 0.2 10^3/uL (0-0.7); Absolute Lymphocytes 2.1 10^3/uL (1.2-3.4); Absolute Monocytes 0.9 10^3/uL (0.1-0.6); Mean Corp Hgb Conc. 33.3 g/dL (33.0-37.0); Mean Platelet Volume 8.6 fL (7.4-10.4); Nucleated Red Blood Cells % 0 %; Platelet Count 688 10^3/uL (130-400); Red Blood Cell Count 4.14 10^6/uL (4.20-5.40); White Blood Cell Count 9.3 10^3/uL (4.8-10.8)
[2024-03-18 14:45] LABS: PT 61.1 Sec (11.4-14.6)
[2024-03-18 14:49] LABS: ALT (SGPT) 31 U/L (0-35); AST (SGOT) 28 U/L (14-36); Albumin 3.7 g/dl (3.5-5.0); Alkaline Phosphatase 172 U/L (38-126); Blood Urea Nitrogen 23 mg/dl (7-17); Calcium 9.3 mg/dl (8.4-10.2); Carbon Dioxide 25 mmol/L (22-30); Chloride 105 mmol/L (98-107); Glucose 88 mg/dl (70-99); Potassium 4.2 mmol/L (3.5-5.1); Sodium 141 mmol/L (135-145); Total Bilirubin 0.3 mg/dl (0.2-1.3); Total Protein 7.1 g/dl (6.3-8.2); eGFR > 60.00
[2024-03-18 14:51] LABS: INR 7.03
== END 2024-03-18 17:31 | disposition home or self-care (01) ==
LOC: EMR 13:31
PROVIDERS: Registered Nurse; EMERGENCY PHYSICIAN Emergency Medicine; FAMILY PHYSICIAN Family Medicine
DX: R79.1 Abnormal coagulation profile (principal); T45.515A Adverse effect of anticoagulants, initial encounter; Z79.01 Long term (current) use of anticoagulants
CPT/HCPCS: 99283; 80053; 85025; 85610

== ENCOUNTER 2024-04-09 23:21 | Emergency (ER) | payer OTHER, SELFPAY ==
[2024-04-09 23:26] VITALS: BP 132/81; BMI 20.7
--- NOTE | 2024-04-09 23:50 | ED.GENMED ---
History of Present Illness
<TIFFANY Byers - Last Filed: 04/10/24 05:11>
General
Chief Complaint: Abdominal Symptoms
Source: patient and significant other
Time Seen by Provider: 04/09/24 23:50
Nursing documentation reviewed up to this point in time: agreed with
History of Present Illness
History of Present Illness:
A pleasant 83-year-old female with a past medical history of hypertension, hyperlipidemia, DVT, frequent urination presents to the emergency department for diarrhea x 1 week. Patient is present with her caregiver, who noted about 10 days ago began
to have diarrhea. Patient states she has 3-4 episodes of diarrhea per day. States she has used OTC Imodium without relief. They are brown and nonbloody in nature. It is associated with mild lower abdominal pain where her 'uterus 'is. She denies
any new foods, travel, sick contacts. She incidentally admits to an increase in urination; however, has history of frequent urination and stress incontinence. She denies any unintentional weight loss.She has been wheelchair-bound since her DVT in
November. She participated in PT; however, admits to still not being able to walk due to arthritis in her knees. Her caregiver states that she had antibiotics 'over a month ago ', but is unaware of the type.She denies Fever, chills, fatigue,chest pain,
shortness of breath, nausea, vomiting, calf pain.
Past History
<TIFFANY Byers - Last Filed: 04/10/24 05:11>
Past History
ED Past Medical History: HTN, Hypercholesterolemia and Other (DVT)
ED Past Surgical History: None
Social History
Tobacco: Non-smoker
Alcohol: Occasional
Drug: None
Personal:
Living: alone (19/12 caregiver)
Review of Systems
<TIFFANY Byers - Last Filed: 04/10/24 05:11>
Review of Systems
Allergies reviewed?: Yes
All Other Systems: ROS reviewed and negative except as documented in HPI and ROS
Phy Exam
<TIFFANY Byers - Last Filed: 04/10/24 05:11>
General Physical Exam
General Presentation: well appearing
General age: appears stated age
General Skin: warm
General Habitus: normal
General Mental: alert
General Hydration: appears well hydrated
ENT Exam
ENT Exam: neck supple
Eye Exam
Eye Exam: conjunctiva normal
Cardiovascular Exam
Cardiovascular Exam: no gallop, no murmur, normal peripheral pulses and bradycardia
Gastrointestinal Exam
Gastrointestinal Exam: soft, non distended, tender (Suprapubic lower abdominal) and other (Hyperactive bowel sounds x 4)
Palpation: right upper quadrant: No tenderness, right lower quadrant: No tenderness and generalized: Mild tenderness (Suprapubic tenderness)
Auscultation of Abdomen: hyperactive
Neurological Exam
Neurological Exam: alert and oriented x3
Musculoskeletal Exam
Musculoskeletal Exam: neuro vasc intact and other (Patient is currently wheelchair-bound)
Skin Exam
Skin Exam: warm/dry and petechia (Petechiae are noted over the medial malleolus of the right leg)
Psychiatric Exam
Psychiatric Exam: normal mood/affect
Course
<TIFFANY Byers - Last Filed: 04/10/24 05:11>
Orders/Labs/Results
Orders:
Orders
04/09/24 23:30
EKG [Electrocardiogram (*1)] Urgent
Reason for Study: Fatigue / Weakness
EKG- Treatment ONCE
IV Insert/Care/Rem.- Treatment PRN
04/09/24 23:39
Complete Blood Count/With Diff Urgent
Comprehensive Metabolic Panel Urgent
04/10/24 00:34
CT Abd/pelvis W Iv Cont Urgent
Comment:
Reason For Exam: Diarrhea
04/10/24 01:00
0.9% Sodium Chloride 1000 ml [Nss] 1,000 ml IV 500 mls/hr
Abnormal Lab Results
04/09/24
23:39
WBC 11.2 H 10^3/uL
(4.8-10.8)
RBC 3.95 L 10^6/uL
(4.20-5.40)
Hgb 11.8 L g/dL
(12.0-16.0)
Hct 34.6 L %
(37.0-47.0)
RDW 15.9 H %
(11.5-14.5)
Plt Count 601 H 10^3/uL
(130-400)
Absolute Neuts (auto) 7.4 H 10^3/uL
(1.4-6.5)
Absolute Monos (auto) 1.0 H 10^3/uL
(0.1-0.6)
BUN 29 H mg/dl
(7-17)
Glucose 109 H mg/dl
(70-99)
04/09/24 23:39
04/09/24 23:39
Vital Signs
Initial and Last Documented VS:
Initial Vital Signs
Temp Pulse Resp BP Pulse Ox
97.6 F 60 16 132/81 99
04/09/24 23:26 04/09/24 23:26 04/09/24 23:26 04/09/24 23:26 04/09/24 23:26
Last Documented Vital Signs
Temp Pulse Resp BP Pulse Ox
97.6 F 63 20 129/83 100
04/09/24 23:26 04/10/24 03:45 04/10/24 03:45 04/10/24 03:00 04/10/24 02:45
Violetlt;Clay Lassiter, - Last Filed: 04/10/24 02:57>
Orders/Labs/Results
Orders:
Orders
04/09/24 23:30
EKG [Electrocardiogram (*1)] Urgent
Reason for Study: Fatigue / Weakness
EKG- Treatment ONCE
IV Insert/Care/Rem.- Treatment PRN
04/09/24 23:39
Complete Blood Count/With Diff Urgent
Comprehensive Metabolic Panel Urgent
04/10/24 00:34
CT Abd/pelvis W Iv Cont Urgent
Comment:
Reason For Exam: Diarrhea
04/10/24 01:00
0.9% Sodium Chloride 1000 ml [Nss] 1,000 ml IV 500 mls/hr
Abnormal Lab Results
04/09/24
23:39
WBC 11.2 H 10^3/uL
(4.8-10.8)
RBC 3.95 L 10^6/uL
(4.20-5.40)
Hgb 11.8 L g/dL
(12.0-16.0)
Hct 34.6 L %
(37.0-47.0)
RDW 15.9 H %
(11.5-14.5)
Plt Count 601 H 10^3/uL
(130-400)
Absolute Neuts (auto) 7.4 H 10^3/uL
(1.4-6.5)
Absolute Monos (auto) 1.0 H 10^3/uL
(0.1-0.6)
BUN 29 H mg/dl
(7-17)
Glucose 109 H mg/dl
(70-99)
04/09/24 23:39
04/09/24 23:39
Vital Signs
Initial and Last Documented VS:
Initial Vital Signs
Temp Pulse Resp BP Pulse Ox
97.6 F 60 16 132/81 99
04/09/24 23:26 04/09/24 23:26 04/09/24 23:26 04/09/24 23:26 04/09/24 23:26
Last Documented Vital Signs
Temp Pulse Resp BP Pulse Ox
97.6 F 63 20 129/83 100
04/09/24 23:26 04/10/24 03:45 04/10/24 03:45 04/10/24 03:00 04/10/24 02:45
<Tyler Shankar [facility] - Last Filed: 04/10/24 05:11>
MDM/Problems Addressed
Differential Diagnosis Includes:
Irritable bowel syndrome versus viral gastroenteritis versus C. diff or other bacterial colitis
MDM/Problems Addressed:
CT was negative intra-abdominal disease/inflammation.
<Tyler Shankar [facility] - Last Filed: 04/10/24 05:11>
*Critical Care Note
Total Time (30-74mins, 75-104mins- exclusive of procedures): Not Applicable
<Tyler Shankar [facility] - Last Filed: 04/10/24 05:11>
Update Note
Update Note:
04/10/2024 0150 AM: ST PA: Patient was resting comfortably. Reassured her that I would notify her of the CT results once radiology interprets the scan and sends us the report.
<Clay Lassiter DO - Last Filed: 04/10/24 02:57>
Update Note
Update Note:
04/10/2024 0150 AM: ST PA: Patient was resting comfortably. Reassured her that I would notify her of the CT results once radiology interprets the scan and sends us the report.
CT abdomen and pelvis with contrast
Comparison: None
IMPRESSION:
Liquid filled colon with small bowel mostly decompressed compatible with history of diarrhea. No CT evidence of colitis. Mesenteric vessels are patent. Mild diffuse bladder wall thickening, nonspecific. Gallstones. Compression fracture of the
L1 vertebral body appears chronic. No other acute findings seen.
ED Attending Note
<TIFFANY Byers - Last Filed: 04/10/24 05:11>
-
Portions of this chart may have been created with voice recognition software.� Occasional wrong word or��sound alike� substitutions may have occurred due to the inherent limitations of voice recognition software.
<Clay Lassiter DO - Last Filed: 04/10/24 02:57>
ED Attending Note
Patient seen and examined by attending physician: Yes
I performed the substantive portion of visit, reviewed & personally made and approve the management plan that is documented in note by myself or LUKE.: Yes
ED Attending Note:
Pleasant 83-year-old female presents to the emergency department via EMS with diarrhea for a week. She is accompanied by her caregiver. Patient states that the diarrhea is nonbloody. Patient reports no abdominal pain. She denies any recent
antibiotic use. Denies fever or chills. Patient was seen in conjunction with the PA student. I have reviewed and agree with the history and treatment plan presented. On my independent physical exam, patient is awake, alert, and oriented x3,
minimal acute distress. She received fluids. She is tolerating oral intake. Abdomen is soft nontender without rigidity or guarding. Good bowel sounds. Mentating appropriately.
Patient has stool cultures pending in the lab. She is expecting results in the next day or so.
Discharge Plan
Departure
Patient Disposition: Home (Routine Discharge)
Date of Disposition: 04/10/24
Time of Disposition: 02:56
Patient with high blood pressure during this ER visit?: Yes
Condition: Good
Discharge Problem:
Diarrhea
Instructions: Diarrhea in teens and adults, [place] Diet, BLOOD PRESSURE
Prescriptions:
No Action
lisinopril 20 mg Tablet
20 mg PO BID
cyanocobalamin (vitamin B-12) 500 mcg Tablet
500 mcg PO DAILY
cholecalciferol (vitamin D3) 50 mcg (2,000 unit) Tablet
50 mcg PO DAILY
omega 8-bey-yti-fish oil [Fish Oil] 1,000 mg (120 mg-180 mg) Capsule
1 cap PO DAILY
warfarin [Jantoven] 3 mg Tablet
6 mg PO QPM Qty: 0 0RF
Referrals:
[facility] [Provider Group]
Adrien Gamble MD [Family Provider] -
Activity Restrictions/Additional Instructions:
Please follow-up on the results of your stool samples.
It was a pleasure meeting you and taking part in your care. We hope for your continued healing and wellness.
Please read discharge instructions in their entirety. However, they are for general education and may not describe your exact diagnosis at discharge. Information on your ER visit and medical conditions were discussed with you along with appropriate
follow up information...
If indicated, please take your medications as instructed and indicated on discharge paperwork.
Please schedule a follow up appointment as directed. Call to schedule an appointment
Please return to the emergency department with ANY change in, persisting, or worsening of symptoms. If any of your symptoms do not improve, or persist, or become more severe within 6-12 hours, please return to the emergency department for further
care.
Please return to the emergency department if you develop a headache, neck pain/stiffness, fever greater than 100.4F, chest pain, shortness of breath, persistent nausea, vomiting, slurred speech, difficulty walking, numbness/tingling, weakness, signs
of infection or any other symptoms that are worrisome to you.
If you have any questions or concerns please do not hesitate to call the Hospital at or E-mail me directly at [email or web address]
Interventions
Interventions:
*Risk Screen - Suicide Last Done: 04/09/24 23:26
*General Assessment Last Done: 04/09/24 23:26
*Neglect/Abuse Screening Last Done: 04/09/24 23:26
ED- Fall Risk Assessment Last Done: 04/09/24 23:26
*ED COVID-19 Vaccine History Last Done: 04/09/24 23:26
*Nursing Disposition Last Done: 04/10/24 04:23
GM-Fiwhif-Jxgfleftah Assessment Last Done: 04/09/24 23:31
Discharge Date and Time
Discharge Date/Time: 04/10/24 04:24
Print Language: [email or web address]
[2024-04-10] VITALS: BP 126/74
[2024-04-10 00:04] LABS: % Basophils 0.6 % (0-2); % Eosinophils 2.2 % (0-6); % Immature Granulocytes 0.4 % (0-0.5); % Lymphocytes 21.4 % (20.5-51.1); % Monocytes 9.1 % (1.7-9.3); % Neutrophils 66.3 % (42.2-75.2); Absolute Basophils 0.1 10^3/uL (0-0.2); Absolute Eosinophils 0.2 10^3/uL (0-0.7); Absolute Lymphocytes 2.4 10^3/uL (1.2-3.4); Absolute Neutrophils 7.4 10^3/uL (1.4-6.5); Hematocrit 34.6 % (37.0-47.0); Hemoglobin 11.8 g/dL (12.0-16.0); Mean Corp Hgb Conc. 34.1 g/dL (33.0-37.0); Mean Corpuscular Hgb 29.9 pg (27.0-31.0); Mean Corpuscular Volume 87.6 fL (81.0-99.0); Mean Platelet Volume 8.9 fL (7.4-10.4); Nucleated Red Blood Cells % 0 %; Platelet Count 601 10^3/uL (130-400); Red Blood Cell Count 3.95 10^6/uL (4.20-5.40); Red Cell Dist. Width 15.9 % (11.5-14.5); White Blood Cell Count 11.2 10^3/uL (4.8-10.8)
[2024-04-10 00:11] LABS: ALT (SGPT) 18 U/L (0-35); AST (SGOT) 23 U/L (14-36); Albumin 3.6 g/dl (3.5-5.0); Alkaline Phosphatase 120 U/L (38-126); Blood Urea Nitrogen 29 mg/dl (7-17); Calcium 9.8 mg/dl (8.4-10.2); Carbon Dioxide 22 mmol/L (22-30); Chloride 107 mmol/L (98-107); Estimated Creatinine Clearance 49 ml/min; Glucose 109 mg/dl (70-99); Potassium 4.2 mmol/L (3.5-5.1); Sodium 143 mmol/L (135-145); Total Bilirubin 0.3 mg/dl (0.2-1.3); eGFR > 60.00
[2024-04-10] MEDS: NSS 1000 IV (01:16)
[2024-04-10 01:18] VITALS: BP 153/75
[2024-04-10 02:00] VITALS: BP 134/71
[2024-04-10 03:00] VITALS: BP 129/83
== END 2024-04-10 04:24 | disposition home or self-care (01) ==
LOC: EMR 23:21
PROVIDERS: EMERGENCY PHYSICIAN Student in an Organized Health Care Education/Training Program; FAMILY PHYSICIAN Family Medicine
DX: R19.7 Diarrhea, unspecified (principal); I10 Essential (primary) hypertension; E78.00 Pure hypercholesterolemia, unspecified; Z86.718 Personal history of other venous thrombosis and embolism; Z99.3 Dependence on wheelchair
CPT/HCPCS: 99284; 96360; 96361; 74177; 80053; 85025; 93005; Q9967

== ENCOUNTER 2024-06-20 10:21 | Emergency (ER) | payer OTHER, SELFPAY ==
[2024-06-20 10:25] VITALS: BP 145/86
[2024-06-20 11:27] LABS: PT 61.5 Sec (11.4-14.6)
[2024-06-20 12:00] VITALS: BP 124/74
--- NOTE | 2024-06-20 12:09 | ED.GENMED ---
History of Present Illness
General
Chief Complaint: Abnormal Lab Value
Source: patient
Exam Limitations: none
Time Seen by Provider: 06/20/24 11:57
History of Present Illness
History of Present Illness:
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 Patient had routine outpatient lab work yesterday and INR was reportedly 10. She was called today and told to go to the ED immediately.
Patient is feeling anxious because she was told it was an emergency. She denies any bleeding. Specifically, she denies any hematuria, hematochezia, melena. Last dose of Coumadin was yesterday.
Past History
Past History
ED Past Medical History: HTN, Hypercholesterolemia and Other (DVT)
ED Past Surgical History: None
Social History
Tobacco: Non-smoker
Alcohol: Occasional
Drug: None
Personal:
Living: alone (19/12 caregiver)
Phy Exam
General Physical Exam
General Presentation: well appearing and no apparent distress
General age: appears stated age
General Skin: warm and dry
General Habitus: normal
General Mental: alert
ENT Exam
ENT Exam: normocephalic
Cardiovascular Exam
Cardiovascular Exam: regular rate/rhythm
Pulmonary Exam
Pulmonary Exam: lungs clear, no respiratory distress, no rales, no crackles and no rhonchi
Neurological Exam
Neurological Exam: alert
Daniel Coma Scale
Eye Opening: Spontaneous
Verbal Response: Oriented
Motor Response: Obeys Commands
GCS Total Score: 15
Skin Exam
Skin Exam: normal color and warm/dry
Psychiatric Exam
Psychiatric Exam: anxious
Course
Orders/Labs/Results
Orders:
Orders
06/20/24 10:41
PT/INR [Prothrombin Time] Urgent
Is patient on Coumadin/Warfarin?: Yes
06/20/24 12:15
Phytonadione [Mephyton] 2.5 mg PO NOW STA
Abnormal Lab Results
06/20/24
10:41
PT 61.5 H Sec
(11.4-14.6)
INR 7.40 H*
Vital Signs
Initial and Last Documented VS:
Initial Vital Signs
Temp Pulse Resp BP Pulse Ox
98.4 F 86 18 145/86 99
06/20/24 10:25 06/20/24 10:25 06/20/24 10:06/20/24 10:06/20/24 10:25
Last Documented Vital Signs
Temp Pulse Resp BP Pulse Ox
98.4 F 86 18 145/86 99
06/20/24 10:06/20/24 10:06/20/24 10:06/20/24 10:06/20/24 10:25
MDM/Problems Addressed
Differential Diagnosis Includes:
83yoF here for a supratherapeutic INR on outpatient labs yesterday. Currently on Coumadin for a DVT. Denies any bleeding and is asymptomatic currently. VSS. Exam is reassuring. Differential diagnosis includes but is not limited to: supratherapeutic
INR, bleeding
Repeat INR obtained in triage which is improving to 7.4. Will give dose of PO vitamin K. No indication for hospitalization at this time as she has no active bleeding. She was advised to hold her Coumadin for the next 3 days and have repeat blood
work on Monday. She was instructed to call her PCP today for further instructions. Strict ED return precautions discussed including bleeding. She expressed understanding and was discharged in stable condition.
*Critical Care Note
Total Time (30-74mins, 75-104mins- exclusive of procedures): Not Applicable
ED Attending Note
-
Portions of this chart may have been created with voice recognition software.� Occasional wrong word or��sound alike� substitutions may have occurred due to the inherent limitations of voice recognition software.
Discharge Plan
Departure
Patient Disposition: Home (Routine Discharge)
Date of Disposition: 06/20/24
Time of Disposition: 12:11
Patient with high blood pressure during this ER visit?: Yes
Discharge Problem:
Supratherapeutic INR
Instructions: Prothrombin time and INR (PT/INR), Warfarin and your diet
Prescriptions:
No Action
lisinopril 20 mg Tablet
20 mg PO BID
cyanocobalamin (vitamin B-12) 500 mcg Tablet
500 mcg PO DAILY
cholecalciferol (vitamin D3) 50 mcg (2,000 unit) Tablet
50 mcg PO DAILY
omega 0-ptj-mym-fish oil [Fish Oil] 1,000 mg (120 mg-180 mg) Capsule
1 cap PO DAILY
warfarin 3 mg Tablet
3 mg PO SUMOTUWEFR
warfarin 2 mg Tablet
2 mg PO THSA
sertraline 25 mg Tablet
25 mg PO DAILY
Referrals:
Adrien Gamble MD [Family Provider] -
Activity Restrictions/Additional Instructions:
Hold your Coumadin for the next 3 days.
Please call your family doctor today for further instructions. You should have repeat blood work on Monday.
Return to the ER with any worsening symptoms or bleeding.
Interventions
Interventions:
*Risk Screen - Suicide Last Done: 06/20/24 10:25
*General Assessment Last Done: 06/20/24 10:25
*Neglect/Abuse Screening Last Done: 06/20/24 10:25
*ED COVID-19 Vaccine History Last Done: 06/20/24 12:00
Discharge Date and Time
Print Language: BURMESE
[2024-06-20] MEDS: MEPHYTON 2.5 MG PO (12:44)
== END 2024-06-20 20:13 | disposition home or self-care (01) ==
LOC: EMR 10:21
PROVIDERS: Emergency Medicine; EMERGENCY PHYSICIAN Emergency Medicine; FAMILY PHYSICIAN Family Medicine
DX: R79.1 Abnormal coagulation profile (principal); Z86.718 Personal history of other venous thrombosis and embolism; Z79.01 Long term (current) use of anticoagulants; E78.00 Pure hypercholesterolemia, unspecified; I10 Essential (primary) hypertension
CPT/HCPCS: 99283; 85610

== ENCOUNTER 2024-07-06 11:36 | Emergency (ER) | payer OTHER, SELFPAY ==
[2024-07-06 11:37] VITALS: BMI 20.1
[2024-07-06 11:38] VITALS: BP 142/87
--- NOTE | 2024-07-06 11:48 | ED.GENMED ---
History of Present Illness
General
Chief Complaint: Abnormal Lab Value
Source: patient
Exam Limitations: none
Time Seen by Provider: 07/06/24 11:44
Nursing documentation reviewed up to this point in time: agreed with
History of Present Illness
History of Present Illness:
Patient is an 83-year-old female sent by family doctor for elevated INR. Patient was seen here June 20
Also for supratherapeutic INR.
She denies any bleeding. She denies any black stool. She denies any hematuria.
Past History
Past History
ED Past Medical History: HTN, Hypercholesterolemia and Other (DVT)
ED Past Surgical History: None
Social History
Tobacco: Non-smoker
Alcohol: Occasional
Drug: None
Personal:
Living: alone (19/12 caregiver)
Review of Systems
Review of Systems
Allergies reviewed?: Yes
Other source history: family
All Other Systems: ROS reviewed and negative except as documented in HPI and ROS
Constitutional: Reports no symptoms; Denies fever, fatigue or chills
Respiratory: Reports no symptoms
Cardiac: Reports no symptoms
ABD/GI: Reports no symptoms; Denies bloody stools
: Reports no symptoms; Denies bleeding
Musculoskeletal: Reports no symptoms
Skin: Reports no symptoms
Psychiatric: Reports no symptoms
Phy Exam
General Physical Exam
General Presentation: no apparent distress
General Skin: warm and dry
General Habitus: elderly
General Mental: alert
General Hydration: appears well hydrated
Cardiovascular Exam
Cardiovascular Exam: regular rate/rhythm, no murmur and normal peripheral pulses
Pulmonary Exam
Pulmonary Exam: lungs clear and no respiratory distress
Neurological Exam
Neurological Exam: alert and oriented x3
Musculoskeletal Exam
Musculoskeletal Exam: full ROM
Skin Exam
Skin Exam: normal color
Psychiatric Exam
Psychiatric Exam: normal mood/affect
Course
Orders/Labs/Results
Orders:
Orders
07/06/24 11:51
Complete Blood Count/With Diff Urgent
Prothrombin Time Urgent
07/06/24 12:50
Comprehensive Metabolic Panel Urgent
07/06/24 12:53
Phytonadione [Mephyton] 5 mg PO NOW STA
Abnormal Lab Results
07/06/24 07/06/24
11:51 12:50
MCHC 32.3 L g/dL
(33.0-37.0)
Plt Count 646 H 10^3/uL
(130-400)
PT 60.0 H Sec
(11.4-14.6)
INR 7.17 H*
BUN 21 H mg/dl
(7-17)
Creatinine 0.5 L mg/dL
(0.6-1.0)
Albumin 3.4 L g/dl
(3.5-5.0)
07/06/24 11:51
07/06/24 12:50
Vital Signs
Initial and Last Documented VS:
Initial Vital Signs
Temp Pulse Resp BP Pulse Ox
97.7 F 89 18 142/87 97
07/06/24 11:38 07/06/24 11:38 07/06/24 11:38 07/06/24 11:38 07/06/24 11:38
Last Documented Vital Signs
Temp Pulse Resp BP Pulse Ox
97.7 F 75 18 122/80 96
07/06/24 11:38 07/06/24 13:00 07/06/24 13:00 07/06/24 13:00 07/06/24 11:43
Assembling Motor Builder consulted with Physician
Assembling Motor Builder consulted with physician?: Yes
Name of Physician Consulted: Christi
MDM/Problems Addressed
Differential Diagnosis Includes:
Not limited to supratherapeutic INR
MDM/Problems Addressed:
Patient is an 83-year-old female on Coumadin for previous DVT by her family doctor for elevated INR. Patient has no complaints of bleeding. She has no other additional complaints and is no acute distress. Her INR is 7.17. Case discussed ED
physician we will plan to give 1 dose of oral vitamin K and plan for discharge home. Family at bedside along with caregiver. Patient presently is on 2 mg of Coumadin every day.
Patient instructed to hold Coumadin over the weekend(today and tomorrow) and have an INR rechecked on Monday.
This is managed by her family doctor.
Chronic conditions affecting care:
History of previous DVT on Coumadin
*Pulse Oximetry
Patient hypoxic: no
*Critical Care Note
Total Time (30-74mins, 75-104mins- exclusive of procedures): Not Applicable
Data Reviewed
Review of Other/Old Records Reveals: Labs, Discharge Summary and Other (previous ED chart )
Source: patient, family and career placement services counselor
ED Attending Note
-
Portions of this chart may have been created with voice recognition software.� Occasional wrong word or��sound alike� substitutions may have occurred due to the inherent limitations of voice recognition software.
Discharge Plan
Departure
Patient Disposition: Home (Routine Discharge)
Date of Disposition: 07/06/24
Time of Disposition: 13:31
Patient with high blood pressure during this ER visit?: Yes
Condition: Fair
Covid-19: Not Applicable
Discharge Problem:
Elevated INR
Instructions: BLOOD PRESSURE
Prescriptions:
No Action
lisinopril 20 mg Tablet
20 mg PO BID
cyanocobalamin (vitamin B-12) 500 mcg Tablet
500 mcg PO DAILY
cholecalciferol (vitamin D3) 50 mcg (2,000 unit) Tablet
50 mcg PO DAILY
omega 4-brj-hrn-fish oil [Fish Oil] 1,000 mg (120 mg-180 mg) Capsule
1 cap PO DAILY
warfarin 3 mg Tablet
3 mg PO SUMOTUWEFR@1999
warfarin 2 mg Tablet
2 mg PO THSA@1999
sertraline 25 mg Tablet
25 mg PO DAILY
Referrals:
Adrien Gamble MD [Family Provider] -
Activity Restrictions/Additional Instructions:
As discussed your INR was elevated at 7.17. Hold your Coumadin today and tomorrow. Your INR level needs to be rechecked on Monday and then follow-up with your family doctor for further instructions on restarting Coumadin with dosage.
Return if any bleeding or concerns
Interventions
Interventions:
*Risk Screen - Suicide Last Done: 07/06/24 11:38
*General Assessment Last Done: 07/06/24 11:38
*Neglect/Abuse Screening Last Done: 07/06/24 11:38
ED- Fall Risk Assessment Last Done: 07/06/24 11:44
Discharge Date and Time
Print Language: SWEDISH
[2024-07-06 12:00] VITALS: BP 133/68
[2024-07-06 12:02] LABS: % Basophils 0.6 % (0-2); % Eosinophils 1.8 % (0-6); % Immature Granulocytes 0.2 % (0-0.5); % Lymphocytes 26.5 % (20.5-51.1); % Monocytes 7.2 % (1.7-9.3); % Neutrophils 63.7 % (42.2-75.2); Absolute Basophils 0.1 10^3/uL (0-0.2); Absolute Eosinophils 0.2 10^3/uL (0-0.7); Absolute Lymphocytes 2.2 10^3/uL (1.2-3.4); Absolute Monocytes 0.6 10^3/uL (0.1-0.6); Absolute Neutrophils 5.3 10^3/uL (1.4-6.5); Hematocrit 39.9 % (37.0-47.0); Hemoglobin 12.9 g/dL (12.0-16.0); Mean Corp Hgb Conc. 32.3 g/dL (33.0-37.0); Mean Corpuscular Volume 92.8 fL (81.0-99.0); Mean Platelet Volume 8.7 fL (7.4-10.4); Nucleated Red Blood Cells % 0 %; Platelet Count 646 10^3/uL (130-400); Red Cell Dist. Width 13.8 % (11.5-14.5); White Blood Cell Count 8.3 10^3/uL (4.8-10.8)
[2024-07-06 12:19] LABS: INR 7.17
[2024-07-06 13:00] VITALS: BP 122/80
[2024-07-06] MEDS: MEPHYTON 5 MG PO (13:10)
[2024-07-06 13:23] LABS: ALT (SGPT) 12 U/L (0-35); AST (SGOT) 23 U/L (14-36); Albumin 3.4 g/dl (3.5-5.0); Alkaline Phosphatase 83 U/L (38-126); Blood Urea Nitrogen 21 mg/dl (7-17); Calcium 9.2 mg/dl (8.4-10.2); Carbon Dioxide 29 mmol/L (22-30); Chloride 105 mmol/L (98-107); Estimated Creatinine Clearance 65 ml/min; Glucose 99 mg/dl (70-99); Potassium 4.2 mmol/L (3.5-5.1); Sodium 139 mmol/L (135-145); Total Bilirubin 0.5 mg/dl (0.2-1.3); Total Protein 6.5 g/dl (6.3-8.2); eGFR > 60.00
== END 2024-07-06 16:34 | disposition home or self-care (01) ==
LOC: EMR 11:36
PROVIDERS: Nurse Practitioner; EMERGENCY PHYSICIAN Emergency Medicine; FAMILY PHYSICIAN Family Medicine
DX: R79.1 Abnormal coagulation profile (principal); I10 Essential (primary) hypertension; E78.00 Pure hypercholesterolemia, unspecified; M19.90 Unspecified osteoarthritis, unspecified site; Z79.01 Long term (current) use of anticoagulants; Z86.718 Personal history of other venous thrombosis and embolism
CPT/HCPCS: 99283; 80053; 85025; 85610